=== PATIENT | male | born 1930 | race Caucasian/White ===

== ENCOUNTER 2018-07-06 10:08 | Inpatient (IN) | payer OTHER ==
--- NOTE | 2018-07-06 10:12 | EDPHY ---
HPI/HX/ROS/PE/MDM Narrative: CHIEF COMPLAINT: Fall, neurologic deficits HPI: This patient is an anticoagulated (Coumadin, aspirin) 87-year-old male arriving via EMS for evaluation of left-sided neurologic deficits. The patient fell yesterday around 12pm while picking tomatoes and struck his head, sustaining significant ecchymosis around his right eye. Last night, he developed left upper extremity weakness. This morning, he had worsening left-sided weakness, left facial droop, and slurred speech, and his called 911. Currently, he is unable to lift his left arm and states it is difficult to think. He endorses headache. He denies fever, chest pain, shortness of breath. No other recent trauma. REVIEW OF SYSTEMS: A comprehensive 10 system review of systems is otherwise negative aside from elements mentioned in the history of present illness and medical decision making. PMH: Mitral valve replacement. CHF. SOCIAL HISTORY: . Lives in [place]. Retired. PHYSICAL EXAM: General:Patient is alert. He has slurred speech. Head: Extensive ecchymosis surrounding right orbital area. ENT: Mild left facial droop. Eyes are normal to inspection. Neck: Normal inspection. Full range of motion. Respiratory:No respiratory distress. Breath sounds normal bilaterally. Cardiovascular: Regular rate and rhythm. Strong peripheral pulses. Normal cap refill. Abdomen:The abdomen is nontender to palpation. There are no peritoneal signs. There are normal bowel sounds. Back: Normal to inspection. No tenderness to palpation. Skin: Normal color. No rash. Warm and dry. Extremities: Normal appearance. Full range of motion. Neuro: Alert and oriented. Left arm weakness. Slurred speech. ED Course: 10:07 Met EMS at bedside. Will place patient in cervical collar due to history and exam findings. 87 y/o male arriving via EMS with neurologic deficits following a fall and head injury yesterday afternoon. On exam he has extensive right periorbital ecchymosis, left arm weakness, mild left facial droop, and slurred speech. 10:10 Called limited plus trauma activation due to history, age, anticoagulation status. Patient will have stat CT head. EKG was ordered and interpreted by myself. Please see [employer] system for official reading. 10:[address] Evidence of large subdural hematoma. Plan to administer Kcentra for anticoagulation reversal. 10:39 Plan to administer TXA, vitamin K. 10:30 Dr. Dorado, trauma surgeon, at bedside. He has assessed the patient. Reviewed CT. He accepts admission for subdural hematoma. Neurosurgery to consult. 10:[address] Christie, radiologist. CT shows large right-sided subdural hematoma about 8mm in depth with with 9mm of midline shift. No evidence of facial fracture. Spoke with GARFIELD Lopez for neurosurgery. Given patient's profound weakness and worsening neurologic deficits, he will likely go to the OR as well as be given PCC for reversal of his INR, as above. Plan to admit to ICU for post -operative care. 11:20 Dr. Shields, neurosurgeon at bedside. Patient will go to the OR urgently as above. Refer to neuro consult for details. 11:55 Patient has become unresponsive and will be transferred emergently to the OR. I spent a total of 109 minutes of critical care time in obtaining history, performing a physical exam, bedside monitoring of interventions, collecting and interpreting tests and discussion with consultants but not including time spent performing procedures. - Data Points Imaging Results: Imaging Impressions Cervical Spine CT 07/06/18 10:13 Impression: Degenerative cervical spine disease. No evidence for acute cervical spine injury. Findings and recommendations discussed with Kar Delgado MD at 10:35 hours , 07/06/2018. Final report concurs with initial preliminary interpretation. Head CT 07/06/18 10:13 Impression: 1. Right-sided subdural hematoma of varying size. On average, it is 8 mm in depth, causing 8 to 9 mm right to left midline shift. There is a focal area where there is more pooling of the subdural blood up to 2 cm in depth. 2. Complete effacement of the right hemispheric sulcal space due to mass effect. 3. No evidence for subarachnoid, epidural, or intraparenchymal bleed. No intraventricular bleed at this time. 4. No evidence for transtentorial herniation. 5. Right facial ecchymosis without fracture. Findings and recommendations discussed with Kar Delgado MD at 10:35 hours , 07/06/2018. Final report concurs with initial preliminary interpretation. Imaging: Discussed imaging studies w/ seasonal sales associate Radiologist, I viewed and interpreted images myself Laboratory Results: Laboratory Results 07/06/18 10:10 07/06/18 10:10 07/06/18 07/06/18 07/06/18 10:15 10:10 10:10 WBC RBC Hgb POC Hgb 11.2 gm/dL L gm/dL (13.7-17.5) Hct POC Hct 33 % L % (40-51) MCV MCH MCHC RDW Plt Count MPV Neut % (Auto) Lymph % (Auto) [place] % (Auto) Eos % (Auto) Baso % (Auto) Nucleat RBC Rel Count Absolute Neuts (auto) Absolute Lymphs (auto) Absolute Monos (auto) Absolute Eos (auto) Absolute Basos (auto) Absolute Nucleated RBC Immature Gran % Immature Gran # PT 33.3 SEC H SEC (12.0-15.0) INR 3.30 H (0.83-1.16) APTT 37.1 SEC SEC (23.0-38.0) POC Sodium 137 mEq/L mEq/L (135-145) Sodium 136 mEq/L mEq/L (135-145) POC Potassium 3.3 mEq/L mEq/L (3.3-5.0) Potassium 3.7 mEq/L mEq/L (3.3-5.0) POC Chloride 96 mEq/L L mEq/L (97-110) Chloride 96 mEq/L L mEq/L (97-110) Carbon Dioxide 30 mEq/l mEq/l (22-31) Anion Gap 10 mEq/L mEq/L (8-16) POC BUN 19 mg/dL mg/dL (7-23) BUN 22 mg/dL mg/dL (7-23) Creatinine 1.0 mg/dL mg/dL (0.7-1.3) POC Creatinine 1.0 mg/dL mg/dL (0.7-1.3) Estimated GFR > 60 Glucose 115 mg/dL H mg/dL (70-100) POC Glucose 119 mg/dL H mg/dL (70-100) Calcium 9.0 mg/dL mg/dL (8.5-10.4) 07/06/18 10:10 WBC 7.78 10^3/uL 10^3/uL (3.80-9.50) RBC 3.18 10^6/uL L 10^6/uL (4.40-6.38) Hgb 10.5 g/dL L g/dL (13.7-17.5) POC Hgb Hct 31.4 % L % (40.0-51.0) POC Hct MCV 98.7 fL fL (81.5-99.8) MCH 33.0 pg pg (27.9-34.1) MCHC 33.4 g/dL g/dL (32.4-36.7) RDW 14.3 % % (11.5-15.2) Plt Count 141 10^3/uL L 10^3/uL (150-400) MPV 11.4 fL fL (8.7-11.7) Neut % (Auto) 77.1 % H % (39.3-74.2) Lymph % (Auto) 10.8 % L % (15.0-45.0) [place] % (Auto) 11.6 % % (4.5-13.0) Eos % (Auto) 0.1 % L % (0.6-7.6) Baso % (Auto) 0.1 % L % (0.3-1.7) Nucleat RBC Rel Count 0.0 % % (0.0-0.2) Absolute Neuts (auto) 6.00 10^3/uL 10^3/uL (1.70-6.50) Absolute Lymphs (auto) 0.84 10^3/uL L 10^3/uL (1.00-3.00) Absolute Monos (auto) 0.90 10^3/uL H 10^3/uL (0.30-0.80) Absolute Eos (auto) 0.01 10^3/uL L 10^3/uL (0.03-0.40) Absolute Basos (auto) 0.01 10^3/uL L 10^3/uL (0.02-0.10) Absolute Nucleated RBC 0.00 10^3/uL 10^3/uL (0-0.01) Immature Gran % 0.3 % % (0.0-1.1) Immature Gran # 0.02 10^3/uL 10^3/uL (0.00-0.10) PT INR APTT POC Sodium Sodium POC Potassium Potassium POC Chloride Chloride Carbon Dioxide Anion Gap POC BUN BUN Creatinine POC Creatinine Estimated GFR Glucose POC Glucose Calcium Medications Given: Discontinued Medications Bacitracin (Bacitracin Ointment Tube) Confirm Administered Dose 14.2 andrew TP .STK -MED ONE Stop: 07/06/18 11:27 Last Admin: 07/06/18 13:34 Dose: 1 tube Bupivacaine HCl (Sensorcaine 0.25% Sdv) Confirm Administered Dose 30 ml .ROUTE .STK-MED ONE Stop: 07/06/18 11:27 Last Admin: 07/06/18 13:31 Dose: 10 ml Cefazolin Sodium (Ancef) Confirm Administered Dose 1 gm .ROUTE .STK-MED ONE Stop: 07/06/18 12:30 Last Admin: 07/06/18 12:29 Dose: 1 gm Cefazolin Sodium (Ancef) Confirm Administered Dose 1 gm .ROUTE .[facility]-MED ONE Stop: 07/06/18 12:30 Last Admin: 07/06/18 12:29 Dose: 1 gm Chlorhexidine Gluconate (Hibiclens) Confirm Administered Dose 1 btl TP .ST-MED ONE Stop: 07/06/18 11:39 Last Admin: 07/06/18 13:33 Dose: 1 btl Epinephrine HCl (Epinephrine) Confirm Administered Dose 1 mg .ROUTE .ST-MED ONE Stop: 07/06/18 11:30 Last Admin: 07/06/18 13:33 Dose: 0.15 mg Fibrinogen/Thrombin (Surgiflo Matrix Kit With Thrombin) Confirm Administered Dose 16 ml TP .STK-MED ONE Stop: 07/06/18 12:09 Last Admin: 07/06/18 13:37 Dose: 8 ml Gentamicin Sulfate (Garamycin) Confirm Administered Dose 160 mg .ROUTE .ST-MED ONE Stop: 07/06/18 11:28 Last Admin: 07/06/18 13:34 Dose: 160 mg Hydrogen Peroxide (Hydrogen Peroxide) Confirm Administered Dose 23.6 andrew TP .STK -MED ONE Stop: 07/06/18 11:29 Last Admin: 07/06/18 13:34 Dose: Not Given Prothrombin Complex Concent (Human) (Kcentra) 2,500 unit in 100 mls @ 0 mls/hr IV ONCE ONE; Per Protocol PRN Reason: Protocol Stop: 07/06/18 10:26 Last Admin: 07/06/18 11:29 Dose: 100 mls Phytonadione 10 mg/ Sodium (Chloride) 51 mls @ 102 mls/hr IV ONCE ONE Stop: 07/06/18 10:54 Last Admin: 07/06/18 11:10 Dose: 51 mls Tranexamic Acid 1,000 mg/ (Sodium Chloride) 110 mls @ 660 mls/hr IV ONCE ONE Stop: 07/06/18 10:48 Last Admin: 07/06/18 10:43 Dose: 110 mls Mannitol (Mannitol 20% (Premix)) Confirm Administered Dose 100 gm IV .STK-MED ONE Stop: 07/06/18 11:29 Last Admin: 07/06/18 13:35 Dose: 100 gm Microfibrillar Collagen Hemostat (Avitene Powder) Confirm Administered Dose 1 gm TP .STK-MED ONE Stop: 07/06/18 11:27 Last Admin: 07/06/18 12:30 Dose: 1 gm Microfibrillar Collagen Hemostat (Avitene Powder) Confirm Administered Dose 1 gm TP .STK-MED ONE Stop: 07/06/18 12:10 Last Admin: 07/06/18 13:36 Dose: Not Given Ondansetron HCl (Zofran) 4 mg IVP EDNOW ONE Stop: 07/06/18 10:58 Last Admin: 07/06/18 10:59 Dose: 4 mg Povidone Iodine (Betadine) Confirm Administered Dose 30 andrew TP .STK-MED ONE Stop: 07/06/18 11:30 Last Admin: 07/06/18 13:36 Dose: 1 tube Thrombin (Thrombin-Jmi) Confirm Administered Dose 5,000 unit TP .STK-MED ONE Stop: 07/06/18 11:27 Last Admin: 07/06/18 13:37 Dose: 5,000 unit Point of Care Test Results: Chemistry 07/06/18 10:15 POC Sodium 137 mEq/L mEq/L (135-145) POC Potassium 3.3 mEq/L mEq/L (3.3-5.0) POC Chloride 96 mEq/L L mEq/L (97-110) POC BUN 19 mg/dL mg/dL (7-23) POC Creatinine 1.0 mg/dL mg/dL (0.7-1.3) POC Glucose 119 mg/dL H mg/dL (70-100) ISTAT H&H 07/06/18 10:15 POC Hgb 11.2 gm/dL L gm/dL (13.7-17.5) POC Hct 33 % L % (40-51) General Time Seen by Provider: 07/06/18 10:08 Initial Vital Signs: Initial Vital Signs Temperature (C) 36.4 C 07/06/18 10:10 Heart Rate 63 07/06/18 10:10 Respiratory Rate 18 07/06/18 10:10 Blood Pressure 144/69 H 07/06/18 10:10 O2 Sat (%) 96 07/06/18 10:10 O2 Delivery Mode Room Air Allergies/Adverse Reactions: amoxicillin Allergy (Verified 07/06/18 11:29) Diarrhea hydrochlorothiazide Allergy (Verified 07/06/18 11:29) lisinopril Allergy (Verified 07/06/18 11:29) Cough simvastatin [From Zocor] Allergy (Verified 07/06/18 11:29) Myalgia tramadol Allergy (Verified 07/06/18 11:29) Rash Home Medications: Medication Instructions Recorded Acetaminophen [Tylenol ES 500 mg 1,000 mg PO Q6HRS PRN 07/06/18 (*)] Ascorbic Acid [Vitamin C 500 mg 500 mg PO DAILY@12 07/06/18 (*)] Aspirin [Aspirin 81mg (*)] 81 mg PO DAILY 07/06/18 Atorvastatin Calcium [Lipitor 20 20 mg PO HS 07/06/18 mg (*)] Bumetanide [Bumex (*)] 2 mg PO TID@,12,15 07/06/18 Ferrous Sulfate [Ferrous Sulf 325 325 mg PO DAILY 07/06/18 MG (*)] Herbals/Supplements -Info Only 1 ea PO DAILY 07/06/18 Latanoprost 0.005% [Xalatan 0.005% 1 drops EACHEYE HS 07/06/18 (*)] Spironolactone [Aldactone 25 MG 12.5 mg PO BID 07/06/18 (*)] Tamsulosin HCl [Flomax 0.4 MG (*)] 0.4 mg PO DAILY 07/06/18 Warfarin Sodium [Coumadin 5MG (*)] 5 mg PO HS 07/06/18 Departure - Departure Disposition: To OP Cath/Surgery Clinical Impression: Subdural hematoma Condition: Critical Report Scribed for: Kar Delgado Report Scribed by: Diana Willingham Date of Report: 07/06/18 Time of Report: 12:16 Physician Review and Approval Statement: Portions of this note were transcribed by an ED scribe. I personally performed the history, physical exam, and medical decision making; and confirm the accuracy of the information in the transcribed note.
[2018-07-06] MEDS ORDERED: PHYTONADIONE 10 MG in NS 50 ML IV ONE (10:25)
[2018-07-06] MEDS ORDERED: HUMAN PROTHROMBIN COMPLX(PCC) 2,500 UNIT/100 ML VIAL IV ONE (10:25)
[2018-07-06 10:28] LABS: PLATELET COUNT 141 10^3/uL (150-400)
[2018-07-06 10:33] LABS: INR 3.3 (0.83-1.16); PROTIME(PATIENT) 33.3 SEC (12.0-15.0)
[2018-07-06] MEDS ORDERED: TRANEXAMIC ACID 1,000 MG in NS 100 ML IV ONE (10:39)
[2018-07-06] MEDS ORDERED: ONDANSETRON 4 MG/2 ML VIAL IVP ONE (10:57)
[2018-07-06] MEDS ORDERED: ONDANSETRON 4 MG/2 ML VIAL ONE ×2 (10:58→11:55)
[2018-07-06] MEDS ORDERED: THROMBIN (BOVINE) 5,000 UNIT VIAL TP ONE (11:26)
[2018-07-06] MEDS ORDERED: BUPIVACAINE 0.25% 30 ML SDV ONE (11:26)
[2018-07-06] MEDS ORDERED: BACITRACIN ZINC 14.2 GM OINTTUBE TP ONE ×2 (11:26→13:39)
[2018-07-06] MEDS ORDERED: AVITENE POWDER 1 GM JAR TP ONE ×2 (11:26→12:09)
[2018-07-06] MEDS ORDERED: GENTAMICIN SULFATE 80 MG/2 ML VIAL ONE (11:27)
[2018-07-06] MEDS ORDERED: HYDROGEN PEROXIDE 236 ML BOTTLE TP ONE (11:28)
[2018-07-06] MEDS ORDERED: MANNITOL 20% 100 GM/500 ML BAG IV ONE ×2 (11:28→11:57)
[2018-07-06] MEDS ORDERED: POVIDONE-IODINE 30 GM OINTTUBE TP ONE (11:29)
[2018-07-06] MEDS ORDERED: EPINEPHrine 1 MG/ML INJ ONE (11:29)
--- NOTE | 2018-07-06 11:35 | PDANEPAE ---
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 - Pulmonary History Hx Oxygen in Use at Home: Yes O2 in Use at Home (L/minute): 2 - Endocrine History Hx Diabetes: No ANE Review of Systems Review of Systems: - Exercise capacity Exercise capacity: unable to assess ANE Patient History - Allergies Allergies/Adverse Reactions: amoxicillin Allergy (Verified 07/06/18 11:29) Diarrhea hydrochlorothiazide Allergy (Verified 07/06/18 11:29) lisinopril Allergy (Verified 07/06/18 11:29) Cough simvastatin [From Zocor] Allergy (Verified 07/06/18 11:29) Myalgia tramadol Allergy (Verified 07/06/18 11:29) Rash - Home Medications Home medications: home medication list seen and reviewed Home Medications: Acetaminophen [Tylenol ES 500 mg (*)] 1,000 mg PO Q6HRS PRN 07/06/18 [Last Taken 07/06/18] Ascorbic Acid [Vitamin C 500 mg (*)] 500 mg PO DAILY@12 07/06/18 [Last Taken 10/10] Aspirin [Aspirin 81mg (*)] 81 mg PO DAILY 07/06/18 [Last Taken 07/05/18] Atorvastatin Calcium [Lipitor 20 mg (*)] 20 mg PO HS 07/06/18 [Last Taken ] Bumetanide [Bumex (*)] 2 mg PO TID@,,07/06/18 [Last Taken 07/05/18 15:00] Ferrous Sulfate [Ferrous Sulf 325 MG (*)] 325 mg PO DAILY 07/06/18 [Last Taken 07/05/18] Herbals/Supplements -Info Only 1 ea PO DAILY 07/06/18 [Last Taken Unknown] Latanoprost 0.005% [Xalatan 0.005% (*)] 1 drops EACHEYE HS 07/06/18 [Last Taken 07/05/18] Spironolactone [Aldactone 25 MG (*)] 12.5 mg PO BID 07/06/18 [Last Taken 21:00] Tamsulosin HCl [Flomax 0.4 MG (*)] 0.4 mg PO DAILY 09/13/18 [Last Taken Unknown] Warfarin Sodium [Coumadin 5MG (*)] 5 mg PO HS 07/06/18 [Last Taken 07/05/18] - Smoking Hx Smoking Status: Never smoked ANE Labs/Vital Signs - Labs Result Diagrams: 07/06/18 10:10 07/06/18 10:10 - Vital Signs Vital Signs: reviewed preoperatively; see RN documention for details Blood Pressure: 133/79 Heart Rate: 60 Respiratory Rate: 18 O2 Sat (%): 93 Height: 170.18 cm Weight: 68.039 kg ANE Physical Exam - Airway Neck exam: C-collar in place Mouth exam: poor dentition - Pulmonary Pulmonary: no respiratory distress - Cardiovascular Cardiovascular: regular rate and rhythym - ASA Status ASA Status: IV, E ANE Anesthesia Plan Anesthesia Plan: general endotracheal anesthesia (RSI) Lines/Monitors: arterial line Urgent/Emergent Case: Manuel tavera completed preop but documented later for safe timely pt care
[2018-07-06] MEDS ORDERED: CHLORHEXIDINE GLUC HIBICLENS 118 ML BTL TP ONE (11:38)
[2018-07-06] MEDS ORDERED: fentaNYL 100 MCG/2 ML INJ ONE (11:55)
[2018-07-06] MEDS ORDERED: LIDOCAINE 2% 100 MG/5 ML SYR ONE (11:55)
[2018-07-06] MEDS ORDERED: DEXAMETHASONE 4 MG/ML VIAL ONE (11:55)
[2018-07-06] MEDS ORDERED: PROPOFOL 200 MG/20 ML VIAL ONE ×2 (11:58→13:14)
[2018-07-06] MEDS ORDERED: SURGIFLO MATRIX KIT WITH THROMBIN 8 ML TP ONE (12:08)
[2018-07-06] MEDS ORDERED: ceFAZolin 1 GM VIAL ONE ×2 (12:29)
[2018-07-06] MEDS ORDERED: ROCURONIUM 50 MG/5 ML VIAL ONE ×2 (12:29→13:14)
[2018-07-06] MEDS ORDERED: PHENYLEPHRINE HCL 100 MCG/ML SYR ONE (12:45)
[2018-07-06] MEDS ORDERED: LABETALOL HCL 5 MG/ML 20 ML MDV IVP PRN (12:51)
[2018-07-06] MEDS ORDERED: fentaNYL 100 MCG/2 ML INJ IVP PRN (12:51)
[2018-07-06] MEDS ORDERED: MEPERIDINE 25 MG/0.5 ML AMP IVP PRN (12:51)
[2018-07-06] MEDS ORDERED: DEXAMETHASONE 4 MG/ML VIAL IVP PRN (12:51)
[2018-07-06] MEDS ORDERED: NALOXONE HCL 0.4 MG/ML INJ IVP PRN (12:51)
[2018-07-06] MEDS ORDERED: ONDANSETRON 4 MG/2 ML VIAL IVP PRN ×2 (12:51→14:04)
--- NOTE | 2018-07-06 12:53 | POSTANESTH ---
Post Anesthetic Evaluation Cardiovascular Status: Normal, Stable Respiratory Status: Other, See Comment (intubated, CMV) Level of Consciousness/Mental Status: Unconscious Pain Control: Adequate, Prn Tx Ordered Nausea/Vomiting Control: Adequate, Prn Tx Ordered Complications Possibly Related to Anesthesia: None Noted
--- NOTE | 2018-07-06 13:03 | SOAPPROG ---
SOAP Progress Note Assessment/Plan: Assessment: 87-YEAR-OLD MALE WITH FALL YESTERDAY RESULTING IN LARGE RIGHT SUBDURAL HEMATOMA WITH A LEFT SHIFT AND LEFT JOSE ANTONIO PARESIS PATIENT IS RESPONSIVE AND ORIENTED AND ALERT WHEN AROUSED BUT STUPOROUS/LARGE ECCHYMOSIS OVER THE RIGHT TEMPORAL AREA/PERRLA CHEST CLEAR COR REGULAR RHYTHM ABDOMEN SOFT EXTREMITIES FULL RANGE OF MOTION FULL PULSES PATIENT IS ON COUMADIN WITH AN INR GREATER THAN 3 FOR A HEART VALVE Plan: NEUROSURGERY EVALUATION FOR PROBABLE INTERVENTION 07/06/18 13:00 Objective: Vital Signs Temp Pulse Resp BP Pulse Ox 36.4 C 60 18 133/79 H 93 07/06/18 10:10 07/06/18 12:50 07/06/18 12:50 07/06/18 12:50 07/06/18 12:50 PT 33.3 SEC (12.0-15.0) H 07/06/18 10:10 INR 3.30 (0.83-1.16) H 07/06/18 10:10 ICD10 Worksheet Patient Problems: Problems Problem Status Onset Subdural hematoma Acute
--- NOTE | 2018-07-06 13:22 | GHP ---
DATE OF ADMISSION: 07/06/2018 HISTORY OF PRESENT ILLNESS: An 87-year-old male who fell at home yesterday and has become progressiv harlan more lethargic with some weakness of his left side, was brought to the ER today. A CT scan revea ls a large subdural hematoma. He has definite left hemiparesis, although he is alert and talking. H allan has a [address] shift [address] scan. Chest x-ray and neck CT are negative. He is admitted at this [place] [facility] and will need neurosurgery intervention. He is on Coumadin for heart disease having had a heart va lve replacement and that is being reversed in the emergency room. PAST MEDICAL HISTORY: Includes open heart surgery with valve replacement for which he is on Coumadin . No other real history is obtainable at this point. REVIEW OF SYSTEMS: Negative on full 10-point review but is somewhat unreliable. SOCIAL HISTORY: Does not smoke. PHYSICAL EXAMINATION: GENERAL: An alert, somewhat stuporous, 87-year-old male who responds appropri ately. HEAD AND NECK: Reveals a right-sided ecchymosis with a small cephalohematoma. Pupils are eq ual and reactive. Occlusion is normal. His TMs are clear. No bruits. NECK: Nontender. He is in a cervical collar. CHEST: Reveals midline median sternotomy scar. Breath sounds are equal. He is nontender in his ribs or clavicles. COR: Reveals a regular rhythm without murmurs. ABDOMEN: Soft and nontender without masses or hernias. GENITALIA: Normal. EXTREMITIES: Benign with full range of motion, full pulses. NEUROLOGIC: Reveals cranial nerves intact. He has definite weakness of his l eft arm and left leg being only 3+ out of 5. His right side extremities move appropriately. PSYCH: Reveals him to be stuporous, cooperative, not really oriented. IMPRESSION: Traumatic right subdural hematoma with midline shift and left paresis. PLAN: Neurosurgery evaluation. Risks and options have been fully discussed. He will most likely ne ed to go to surgery after reversal of his anticoagulation. /[id number]/MODL
--- NOTE | 2018-07-06 13:32 | GCON ---
DATE OF CONSULTATION: 07/06/2018 TIME SEEN: Time the patient was seen in the ER is at 10:30 a.m. REASON FOR CONSULTATION: Right-sided subdural hematoma, status post fall. HOSPITAL COURSE, HISTORY, AND MAJOR MEDICAL FINDINGS: The patient is an 87-year-old gentleman who is on Coumadin for his heart valve and was out picking tomatoes yesterday and fell. He did hit his hea d on the right-hand side. After the event, he was feeling a little bit weak, and then when his went to wake him up this morning, he was unable to move his left arm or left leg very well. She brou ght him to [facility] Emergency Room for further evaluation. Upon examining the patient, he s tates he has a headache. He is dizzy and has some nausea. Denies any loss of bowel or bladder contr ol. Denies any right arm or leg numbness, tingling, pain, or weakness. PAST MEDICAL HISTORY: Significant for history of a valve, for which he is on Coumadin. PAST SURGICAL HISTORY: Significant for valve replacement. HOME MEDICATIONS: Home medications include Tylenol, ascorbic acid, aspirin, Lipitor, Bumex, ferrous sulfate, ferrous sulfate, multivitamin, latanoprost drops, spironolactone, tamsulosin, and Coumadin. SOCIAL HISTORY: The patient is with his at bedside. FAMILY HISTORY: Noncontributory. ALLERGIES: Amoxicillin, hydrochlorothiazide, lisinopril, simvastatin, and tramadol. PHYSICAL EXAM: VITALS: BP is 133/78, heart rate is 60, respiratory rate is 18, and he is 93% on christopher m air. Temp is 36.4. GENERAL: The patient is in no acute distress. He is alert and oriented, thou gh he is complaining of a bad headache. HEENT: He does have some right eye ecchymosis and swelling. Pupils, PERRLA. NEUROLOGIC: The patient is a 5/5 in his right upper and right lower extremity, in cluding his deltoids, triceps, biceps, wrist flexors, extensors, interossei, intrinsic butter wrapper, iliopsoa s, hamstrings, quadriceps, plantar flexion, dorsiflexion, EHL. The patient's left upper and left low er extremity, he is a 1/5 diffusely in his deltoids, triceps, biceps, wrist flexors, extensors, inter ossei, intrinsic butter wrapper, iliopsoas, hamstrings, quadriceps, plantar flexion, dorsiflexion, and EHL. DIAGNOSTIC REVIEW: Patient underwent a head CT upon coming into the emergency room, which demonstrat ed a right-sided subdural hematoma about 8 mm in depth, with 8-9 mm of midline shift. There is compl ete effacement of the right hemispheric sulci due to mass effect. There was no evidence of facial fr acture, but there is a right eye ecchymosis. The patient also underwent a cervical spine CT, which demonstrated multilevel degenerative disk disea se without any evidence of acute spinal fracture. ASSESSMENT AND PLAN: The patient is an 87-year-old gentleman who sustained a ground level fall yeste rday and who has profound left-sided arm and leg weakness. He is also on Coumadin for his heart valv e, and his INR is 3.3. It was discussed with Trauma Surgery, as well as the ER, that given the patie nt's profound weakness, that he should be taken to the ER emergently. He will be given PCC for rever shonda of his INR. The risks, benefits and alternatives to proceeding with the procedure were thoroughl y discussed with the patient and his , who was at the bedside today. He will be taken to the OR and be admitted to the ICU afterwards for close observation. The patient was seen by Dr. Shields and myself. /[id number]/MODL
[2018-07-06] MEDS ORDERED: LACTULOSE 20 GM/30 ML UDCUP PO PRN (14:04)
[2018-07-06] MEDS ORDERED: POLYETHYLENE GLYCOL 3350 17 GM PKT PO PRN (14:04)
[2018-07-06] MEDS ORDERED: MAGNESIUM HYDROXIDE 30 ML UDCUP PO PRN (14:04)
[2018-07-06] MEDS ORDERED: BISACODYL 10 MG SUPP PR PRN (14:04)
--- NOTE | 2018-07-06 14:24 | CPEKG ---
Test Reason : OPEN Blood Pressure : / mmHG Vent. Rate : 078 BPM Atrial Rate : 000 BPM P-R Int : 046 ms QRS Dur : 162 ms QT Int : 464 ms P-R-T Axes : 000 085 095 degrees QTc Int : 529 ms Atrial flutter Ventricular premature complex Right bundle branch block Repol abnrm suggests ischemia, diffuse leads Confirmed by Kar Delgado ([id number]) on 07/06/2018 2:23:38 PM Referred By: Confirmed By:Kar Delgado
--- NOTE | 2018-07-06 14:25 | POSTOPPROG ---
Post Op Note Date of Operation: 07/06/18 Surgeon: Kelly Shields Beauty Director: Jovon Plunkett Anesthesia: GET(General Endotracheal) Pre-op Diagnosis: SDH Post-op Diagnosis: SDH Indication: AMS Procedure: right sided hemicraniotomy Findings: large holohemispheric SDH Inf/Abcess present in the surg proc area at time of surgery?: No Depth: Organ Space EBL: 50-100 Drains: Gonzalez Marrufo
--- NOTE | 2018-07-06 14:28 | NEUSURGPN ---
Date of Surgery: 07/06/18 Post Op Day: 0 Assessment/Plan: 87M on AC with large holohemispheric R SDH, s/p R hemicrani for evacuation SBP<140 Keppra q2h neuro checks SD Vaca open low to floor JPx1 to suction (subgaleal) CTH in AM, sooner if declines seen and dw Dr. Shields Subjective: intubated, post anesthesia and on propofol Objective: intubated sedated PEARLA, sluggish no response to painful stimuli JPx1 with bloody drainage Vaca to floor. Urinary Catheter in Place: Yes Urinary Catheter Indication: Accurate I & O Required - Physician Discussed Patient with Dr.: Shields Patient Seen by : Alyson Neurosurgery Physical Exam - Vitals, I&O, Labs I and O 07/05/18 07/06/18 07/07/18 05:59 05:59 05:59 Weight 68.039 kg Vital Signs Temp Pulse Resp BP Pulse Ox 36.1 C 85 9 L 163/79 H 100 07/06/18 14:00 07/06/18 14:00 07/06/18 14:00 07/06/18 14:00 07/06/18 14:00 ICD10 Worksheet Patient Problems: Problems Problem Status Onset Subdural hematoma Acute
[2018-07-06] MEDS: niCARdipine/NACL 200 ML IV PRN (14:29)
[2018-07-06] MEDS: NS W/ 20 KCl/L 1,000 ML IV SCH (14:33)
--- NOTE | 2018-07-06 14:37 | GOP ---
DATE OF ADMISSION: 07/06/2018 PREOPERATIVE DIAGNOSIS: 1. Acute subdural hematoma, right-sided. 2. Herniation. POSTOPERATIVE DIAGNOSIS: 1. Acute subdural hematoma, right-sided. 2. Herniation. PROCEDURE: Right craniotomy, evacuation of acute subdural hematoma. SURGEON: Kelly Shields DO. HOME AGENT: ILAN Tapia. EBL: 250 mL. FLUIDS: 1 L crystalloid. URINE OUTPUT: Not recorded. DRAINS: One DAMIÁN in the subgaleal space to bulb suction. One ventricular type drain in the subdural s pace to a Vaca bag. SPECIMENS: None. COMPLICATIONS: None. INDICATIONS: This is an 87-year-old male on Coumadin who fell while picking tomatoes. He was acutel y weak on the left side when he came in with a large subdural hematoma. He had a decline in the [facility] department. Was given PCC acutely and brought to the operating room for an emergent craniotomy . He was identified. His consented for him. Hair was clipped with the OR clippers. Right michelle e was identified. Head was placed in a Moses head porter to 80 pounds of pressure with a slight t urn to his head and a bump under his shoulder. All pressure points were appropriately padded. His i ncision site was marked for a large? shaped craniotomy. He was prepped and draped in the usual steri le fashion. Incision was anesthetized with 0.5% Marcaine with epinephrine. Patient had been loaded with PCC, Keppra and mannitol. Incision was made with a 10 blade. Hemostasis was obtained with bipo lar cautery. The periosteal elevator was used to elevate the periosteum and the Bovie was used to di ssect through the temporalis muscle, reflecting it for placing a scalp flap anterior to the _. Retracted the scalp flap with the fish hooks to the Aparna bar. 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 In the frontal region in the keyhole in the infratemporal fossa and posteriorly performed these 14 mm bu rr holes and then connected these with a B1 with footplate. The dura was densely adherent to the fla p. We were able to remove the flap and reflect the dura posteriorly. We then evacuated an exceeding ly large acute subdural hematoma covering the entire right hemisphere. There was a large sort of abdirashid ticular-shaped region that was compressive in the brain leaving a compression in the brain. That was right near the vein of Trolard which was the actively bleeding vessel. We were able to use Gel-Foam and Avitene to get this vessel to stop without taking the vessel or infarcting it. We then copiousl y irrigated with gentamicin infused saline, trocared a ventricular type drain out posteriorly, placin g in the subdural space. We approximated with scaffolding the dura with 4-0 Nurolon but as it had be en densely adherent it was torn in several places. We then placed DuraGen over this space and then r eplaced the bone flap with Synthes plates and 4 mm screws. We then copiously irrigated with gentamic in infused saline trocared a subgaleal drain out more anteriorly, closed the temporalis fascia with 2 -0 Vicryl pop-offs. Closed the subgaleal space with 0 Vicryl pop-offs. The skin was closed with sta ples. The drains were sutured with 2-0 Vicryl pop-offs. The patient dressed with bacitracin and Tel fa stapled down. Patient was stable throughout the surgery, tolerated procedure well. Will remain i ntubated in the ICU, and will re-examine him. The brain did not pop up to the surface, that should al so be noted. /[id number]/MODL
[2018-07-06] MEDS: fentaNYL/NACL 100 ML IV SCH (14:38)
[2018-07-06] MEDS: PROPOFOL/EMULSION 100 ML IV SCH (14:38)
--- NOTE | 2018-07-06 14:55 | PDMN ---
Medical Necessity Medical necessity: Pt meets inpt criteria per MD order and [facility] [id number] Craniotomy for Traumatic Brain Injury or Intracerebral Hemorrhage, Medicare inpt only surgery, 5 days. 87 y/o who fell at home admitted w/large traumatic subdural hematoma w/midline shift revealed by CT, L paresis present, progressive lethargy, nausea, dizziness, and headache. Neurosurg consult, pt to OR for R hemicraniotomy for evac of R SDH, ICU monitoring, anticipate >2MN for ongoing monitoring/treatment.
--- NOTE | 2018-07-06 16:08 | GHP ---
DATE OF ADMISSION: 07/06/2018 REFERRING PHYSICIAN: Barrington Dorado MD REASON FOR REFERRAL: Evaluation and management of hypertension and respiratory failure. HISTORY: The patient is an 87-year-old gentleman who is on Coumadin apparently for a heart valve rep lacement who was picking tomatoes yesterday and fell. He hit his head on the right side. He was fee ling a little bit weak yesterday and then when his went to wake him up this morning, he was unab le to move his left arm or left leg. He was brought to [facility] where the patient had a headache, some dizziness and nausea, as well as a left-sided weakness. A CT scan of the head s howed an 8 mm right-sided subdural hematoma with an 8-9 mm midline shift. In the emergency departmen t, his status deteriorated and his pupil began to dilate, so he was taken emergently to the operating room where a craniotomy was performed and a large right subdural hematoma was evacuated. He receive d PCC prior to surgery. He was kept intubated after surgery. PAST MEDICAL HISTORY: Heart valve replacement. MEDICATIONS: At the time of admission include aspirin, Lipitor, Bumex, iron sulfate, spironolactone, tamsulosin, and Coumadin. ALLERGIES: Amoxicillin, hydrochlorothiazide, lisinopril, simvastatin and tramadol. FAMILY HISTORY: Noncontributory. SOCIAL HISTORY: The patient is . He is a nonsmoker. REVIEW OF SYSTEMS: Unobtainable. PHYSICAL EXAMINATION: GENERAL: The patient is intubated, sedated and unresponsive. VITAL SIGNS: H is systolic blood pressure was 155 when he first came in, but is now 138/48. His heart rate is 72. He is afebrile. HEENT: The patient is status post right craniotomy and has ecchymosis around his ri ght eye. He is nonicteric. NECK: No adenopathy. Trachea is midline. CHEST: Clear to auscultatio n. CARDIAC: Irregularly irregular. ABDOMEN: Soft. Bowel sounds are present, but hypoactive. EXT REMITIES: No clubbing, cyanosis, or edema. NEURO: The patient is not spontaneously moving currentl y. He is on propofol and had received rocuronium a few hours ago. LABORATORY: Hemoglobin is 11.2. Chemistry group is unremarkable. Blood gas shows a pH of 7.49 with a pO2 of 330, a CO2 of 29, and a bicarbonate of 28 on 100% oxygen with a sedimentation rate of 9 and a patient rate of 15 with a tidal volume of 500. Chest x-ray shows some atelectasis and pulmonary venous hypertension. Images were reviewed by me. ASSESSMENT: 1. Large right subdural, status post evacuation. 2. Hypertension. The patient initially had some hypertension, but the patient has been started on a nicardipine drip and also started on a fentanyl drip, and this has normalized. 3. Atrial fibrillation. The patient currently has atrial fibrillation, which is rate controlled. I t is unclear if he has a prior history of atrial fibrillation. 4. Respiratory failure. The patient has respiratory failure related to anesthesia, but his underlyi ng mental status may also be contributing. It is possible that he will not be able to control his ai rway even after sedation/anesthesia is discontinued. RECOMMENDATIONS: 1. Continue nicardipine as p.r.n. Propofol and fentanyl will be continued for analgesia and sedatio n. The patient will be kept intubated for the time being. We will probably aim toward reducing sanjeev tion and seeing if he can be extubated tomorrow. 2. GI prophylaxis will be instituted. /[id number]/MODL
[2018-07-06] MEDS: FAMOTIDINE 20 MG/NACL 50 ML IV SCH (16:22)
[2018-07-06] MEDS ORDERED: DOPamine/DEXTROSE 400 MG/250 ML BAG IV ONE (18:10)
[2018-07-06] MEDS ORDERED: ALBUMIN 5% 500 ML BOTTLE IV ONE (18:10)
[2018-07-06] MEDS ORDERED: ALBUMIN 5% 500 ML IV PRN (18:17)
[2018-07-06] MEDS ORDERED: NOREPINEPHRINE BITARTRATE 4 MG in NS 500 ML IV SCH (18:30)
--- NOTE | 2018-07-06 19:34 | PDINTPN ---
Generation Technologist Progress Note Assessment/Plan: Assessment: Called to see patient secondary to hypotension. 87-year-old status post mechanical fall yesterday, struck his head. History of mitral valve replacement, chronic atrial fibrillation and Coumadin anticoagulation. This morning when he awoke had left-sided weakness. Was brought to the emergency department. Found to have a large right-sided subdural hematoma with herniation. He was taken to the operating room and craniotomy performed with evacuation of the subdural. Drains were left in place. He was returned to the intensive care unit on the ventilator. He was initially hypertensive, requiring Cardene, propofol and fentanyl. He subsequently became hypotensive, with MAPs in the 50s. Cardene propofol turned off. Started on low-dose dopamine. IV fluids continued. Given 5% albumin, 500 cc. MAPs better, in the low 60s. Atrial fibrillation on the monitor now with a rate of approximately 75. Saturations 100%. Lungs are clear bilaterally. He is starting to move lower extremities appropriately to stimulation and would appear to squeeze his right-hand to command. No response regarding the left upper extremity. Triple-lumen catheter placed in the right subclavian vein without problems. This is dictated separately. CVP pending. Hematocrit 24, down from 31 on admission. Plan: Continue dopamine for now. Await CVP measurements. Adjust fluids accordingly. Would use norepinephrine as a 2nd agent for hypotension if needed. Repeat H&H at 10:00 p.m.. Follow laboratory, chest x-ray, ABG in the a.m.. Continue ventilatory support and full supportive intensive care. Possible repeat CT scan tonight per neuro surgery. 40 min of critical care time spent directly with the patient, not including central line placement. Discussed issues with nursing and the patient's family. Objective: Vital Signs Temp Pulse Resp BP Pulse Ox 35.7 C L 45 L 14 104/38 L 100 07/06/18 15:01 07/06/18 18:00 07/06/18 18:00 07/06/18 18:00 07/06/18 18:00 Laboratory Results 07/06/18 18:30 07/06/18 18:30 07/05/18 07/06/18 07/07/18 05:59 05:59 05:59 Intake Total 486 Output Total 1280 Balance -794 PT 33.3 SEC (12.0-15.0) H 07/06/18 10:10 INR 3.30 (0.83-1.16) H 07/06/18 10:10 ICD10 Worksheet Patient Problems: Problems Problem Status Onset Subdural hematoma Acute
[2018-07-06] MEDS ORDERED: ALBUMIN 5% 500 ML IV ONE (19:51)
--- NOTE | 2018-07-06 20:59 | GPN ---
DATE OF PROCEDURE: 07/06/2018 PROCEDURE: Central line placement. INDICATION: Hypotension, need for pressors in a patient status post fall and craniotomy for a large subdural hematoma. DESCRIPTION OF PROCEDURE: The procedure was performed in the intensive care unit. Informed consent was obtained from the patient's family. Appropriate time-out was performed. Sterile barrier techniq ues were used throughout the procedure. Local anesthesia included approximately 5 cc of 1% lidocaine related to the right clavicle. The subc lavian vein was easily cannulated. Wire, introducer, and subsequently the triple-lumen catheter were placed without difficulty. There was no significant bleeding. There was good blood return from all 3 ports. Chest x-ray documented the line to be in good position. There was no evidence of a pneumo thorax. The lungs otherwise appeared clear. CVP was measured and was found to be 9 cm water pressure. ASSESSMENT: Successful central line placement. /[id number]/MODL
[2018-07-06] MEDS: levETIRAcetam 750 MG in NS 100 ML IV SCH (21:15)
[2018-07-06] MEDS: SENNOSIDES/DOCUSATE SODIUM TAB PO SCH (21:19)
[2018-07-07] MEDS: PROPOFOL/EMULSION 100 ML IV SCH (03:03)
[2018-07-07] MEDS: NS W/ 20 KCl/L 1,000 ML IV SCH (04:41)
[2018-07-07 06:40] LABS: PLATELET COUNT 103 10^3/uL (150-400)
[2018-07-07 06:49] LABS: INR 1.3 (0.83-1.16); PROTIME(PATIENT) 16.4 SEC (12.0-15.0)
[2018-07-07] MEDS: fentaNYL/NACL 100 ML IV SCH (07:15)
[2018-07-07] MEDS: SENNOSIDES/DOCUSATE SODIUM TAB PO SCH ×2 (08:07→21:21)
--- NOTE | 2018-07-07 08:28 | SOAPPROG ---
SOAP Progress Note Assessment/Plan: Assessment: 87 yo male who takes COumadin POD #1 sp emergent right crani for acute SDH after a fall Neuro exam grossly stable with left hemiplegia and purposeful right sided movement to stimulation New right sided ICH on CTH this AM - will follow. Dr. Shields aware Still on Dopamine 5mcg Plan: CPM on vent. Will give 100% O2, 2hr on /2 hr off x 24 hrs to help with pneumocephalus Raise SD drain to shoulder level per Dr Shields Continue subgaleal DAMIÁN OK to get MRI Cspine to clear cspine Repeat CTH in AM Tuesday reviewed CTH, patient exam, subdural drain output and plan with Dr. Shields this AM 07/07/18 08:32 Subjective: intubated, no sedation. Per RN grossly stable exam overnight will occasionally move right side, but mostly to painful stim. Ongoing left hemiplegia Objective: Vital Signs Temp Pulse Resp BP Pulse Ox 37.9 C 68 19 118/48 L 94 07/07/18 04:00 07/07/18 07:00 07/07/18 07:00 07/07/18 07:00 07/07/18 07:00 Laboratory Results 07/07/18 06:15 07/07/18 06:15 07/06/18 07/07/18 07/08/18 05:59 05:59 05:59 Intake Total 3919 Output Total 2213 157 Balance 1706 -157 PT 16.4 SEC (12.0-15.0) H 07/07/18 06:15 INR 1.30 (0.83-1.16) H 07/07/18 06:15 Neuro: eyes closed Pupils pinpoint moves right arm towards ET tube to sternal rub and flexes right leg up slight movement lleft toes to painful stim Subdural DAMIÁN: dilute blood from CSF drainage 157ml Subgaleal: no output this AM ICD10 Worksheet Patient Problems: Problems Problem Status Onset Subdural hematoma Acute
--- NOTE | 2018-07-07 09:34 | ASMTCASEMG ---
Living Arrangements What is your living Answers: With Spouse arrangement? Who do you live with? Type Of Residence What kind of residence do Answers: House you live in? Discharge Plan Comments Coordination Status Comments Notes: Patient is a 87yo male who is on Coumadin for a heart valve replacement. Patient was picking tomatoes on 07-05-18 when he fell and hit his head. He woke up on the unable to move his left arm and left leg. Patient was also experiencing dizziness and nausea, headache. In the ER, patient deteriorated and was taken emergently to the OR where a craniotomy was performed and a large right subdural hematoma was evacuated. PT ordered. D/C plan TBD. CM will follow Date Signed: 07/07/2018 09:33 AM Electronically Signed By:Casie Haq LCSW
[2018-07-07] MEDS ORDERED: PHENYLEPHRINE HCL 100 MCG/ML SYR ONE (09:37)
--- NOTE | 2018-07-07 11:05 | PDINTPN ---
[employer]ver Progress Note Assessment/Plan: Assessment: S/P fall S/P SDH with evacuation 07/06 Hypotension: Initially hypertensive, then developed hypotension that responded to IVF and DA. Now off DA AF: Rate OK Anticoagulation: For Valve replacement and AF. Now reversed. Anemia: Up after transfusion. Plan: Await MRI to determine if there is a c-spine ligamentous injury. Follow BP. Hold sedation, possibly extubate today. Follow Hgb. 07/07/18 11:07 Subjective: Intubated, sedated. Responds to some simple commands. Objective: Vital Signs Temp Pulse Resp BP Pulse Ox 37.9 C 69 13 132/52 H 100 07/07/18 04:00 07/07/18 09:00 07/07/18 09:00 07/07/18 09:00 07/07/18 09:00 Laboratory Results 07/07/18 06:15 07/07/18 06:15 07/06/18 07/07/18 07/08/18 05:59 05:59 05:59 Intake Total 3919 Output Total 2213 181 Balance 1706 -181 PT 16.4 SEC (12.0-15.0) H 07/07/18 06:15 INR 1.30 (0.83-1.16) H 07/07/18 06:15 Physical Exam - Physical Exam General Appearance: alert, no apparent distress EENT: ET tube, other (right eye eccymosis) Neck: normal inspection, other (hard c-collar) Respiratory: lungs clear, normal breath sounds Cardiac/Chest: regular rate, rhythm, No edema Abdomen: normal bowel sounds, non-tender Skin: normal color, warm/dry Extremities: normal inspection Neuro/Psych: normal mood/affect, No alert ICD10 Worksheet Patient Problems: Problems Problem Status Onset Subdural hematoma Acute
[2018-07-07] MEDS: levETIRAcetam 750 MG in NS 100 ML IV SCH ×2 (11:26→21:01)
[2018-07-07] MEDS: FAMOTIDINE 20 MG/NACL 50 ML IV SCH (11:26)
--- NOTE | 2018-07-07 12:42 | GCON ---
CARDIOLOGY CONSULTATION REFERRING PHYSICIAN: Dr. Dorado CHIEF COMPLAINT: Right subdural hematoma evacuation/significant cardiac history. HISTORY OF PRESENT ILLNESS: This is an 87-year-old male who apparently, according to his , was o ut picking tomatoes on 07/06/2018 in the morning. The patient apparently was carrying in a basket fu ll of tomatoes and using a cane in his alternate hand, when he Orestes slipped on a concrete step walki ng into the house and fell and hit the right side of his head. The patient actually was alert enough to come in to talk to his , who explained the situation, and did not mention any issues of passi ng-out/syncope/palpitations. The patient indicated to his that the fall was most likely from st umbling on the step, where his cane could not get appropriate footing. Unfortunately, the patient di d develop worsening mental status, and he was taken to the emergency room, where he was found to have a subdural hematoma on the right side which had mass effect. The patient was taken emergently by [facility] for evacuation. The patient is being seen now in the ICU setting, currently intubated. O f note, the patient's baseline ECG appears to be controlled atrial fibrillation, with no acute ST rafy nges. Blood pressure is stable on a Cardene drip. PAST MEDICAL HISTORY: According to the family, the patient does have a significant cardiac history. Unfortunately, they are unclear of what exact diagnoses he has had. They do recall him having a jessika ve surgery, as well as having an arrhythmia issue, but they are unclear if this is atrial fibrillatio n versus something else. Additionally, they are unclear if the patient had a mechanical or bioprosth etic heart valve placed, although he was on Coumadin upon admission. The patient also apparently has a history of hypertension and hyperlipidemia. HOME MEDICATIONS: They consist of: 1. Aspirin. 2. Lipitor. 3. Bumex. 4. Iron sulfate. 5. Spironolactone. 6. Coumadin. 7. Tamsulosin. ALLERGIES: 1. Amoxicillin. 2. Lisinopril. 3. Simvastatin. FAMILY HISTORY: Noncontributory. REVIEW OF SYSTEMS: Unobtainable, secondary to the patient's current clinical status. SOCIAL HISTORY: The patient is currently . He was quite active prior to this incident. PHYSICAL EXAMINATION: VITAL SIGNS: The patient is currently afebrile. Blood pressure is 140/70, wi th a heart rate of 74, saturating at 97% on the ventilator. EYES: Pupils are sluggish bilaterally. SKIN: Dry. CARDIOVASCULAR: Irregularly irregular. S1, S2. Soft 2/6 systolic murmur, heard best at the apex. LUNGS: Decreased breath sounds bilaterally. ABDOMEN: Soft, nontender. No guarding. EXTREMITIES: No clubbing. No cyanosis. No edema. NEUROLOGIC: The patient is currently on the ve ntilator, unresponsive to loud stimuli. HEAD AND NECK: The patient does have large bruising across his right side of his temporofrontal area secondary to his recent fall. LABORATORY STUDIES/DATA: Laboratory values currently show a white count of 10,000, hemoglobin 9, hem atocrit 26.2, platelet count 103,000. INR is currently 1.3. Creatinine 0.8, BUN 19, sodium 138, pot assium 4.1, magnesium 2.4. ASSESSMENT AND PLAN: Status post evacuation of subdural hematoma/extensive cardiac disease history. At this time, the patient appears to be in controlled atrial fibrillation, with a rate of 70-80. Of note, after talking to the nursing staff, the patient did have his heart rate reducing into the 30s; however, given his acute neurologic issues, it is not unusual to have patient's heart rates vary wit h acute neurologic insults. Additionally, after speaking in length with the patient's and famil y, it seems that the inciting event was not a syncopal episode, but rather a misstep which resulted i n the patient's fall, making the bradycardia less likely the etiology for the patient's presentation. Of note, the patient's x-ray does show what appears to be left atrial ligation, as well as a biopro sthetic valve, most likely in the mitral position. This is would be fortuitous, as placing the patie nt back on a blood thinner obviously would not be the best-case scenario at this point, given his acu te subdural hematoma. We will obtain an echocardiogram as soon as possible to verify that this is in deed a bioprosthetic valve. If this is not a mechanical valve, we can hopefully hold off on re-start ing any anticoagulation therapy until the patient has made it through this acute neurologic bleeding issue. We will follow along with you. Thank for the consultation. No indications for temporary pac emaker wire at this point either, given the patient's stable heart rate at this time. /[id number]/MODL
[2018-07-07] MEDS: niCARdipine/NACL 200 ML IV PRN ×2 (13:15→18:19)
--- NOTE | 2018-07-07 13:43 | ECHO ---
[email or web address] [address] [address] Main: [phone] Fax: Transthoracic Echocardiogram Name: FREEMAN ALICEA MR#: [id number] Study Date: 07/07/2018 Study Time: 11:47 AM Date of : 1930 Age: 87 year(s) Height: 170.2 cm (67 in.) Weight: 68.04 kg (150 lb.) BSA: 1.79 m2 Gender: Male Examination: Echo Indication: s/p bio prosthetic MVR 2012; afib Image Quality: Adequate Contrast: Requested by: Barney Robles BP: 138 mmHg/51 mmHg Heart Rate: Rhythm: Indication: s/p bio prosthetic MVR 2012; afib Procedure Staff Client Resource Specialist: Sharyn Zuniga [facility] Reading Physician: Barney Robles MD Requesting Provider: Conclusions: Normal global systolic LV function. EF is 65 %. Moderately reduced RV function. The left atrium is severely dilated. The right atrium is severely dilated. A bioprosthetic mitral valve is in place.. No significant mitral regurgitation. Mean gradient across the MVR 4mmHg. Moderate aortic cusp calcification is present. Mild calcific aortic valve stenosis. The tricuspid valve leaflets do not seem to coapt due to RV dilatation. Severe tricuspid regurgitation is present. Right ventricular systolic pressure measures 35mmHg. PA pressure may be underestimated secondary to dilated RA/reduced RV function. Measurements: Chambers Valvular Assessment AV/MV Valvular Assessment TV/PV Normal Normal Normal Name Value Range Name Value Range Name Value Range Ao Alyson (MM): 3.8 cm (2.2 cm-3.7 AV meanP mmHg ( - ) TR Vmax: 2.48 mm/s ( - ) cm) AN (VTI): 1.8 cm ( - ) TR PGmax: 25 mmHg ( - ) IVSd (2D): 1.4 cm (0.6 cm-1.1 MV meanP mmHg ( - ) syst. PAP: 35 mmHg ( - ) cm) MV PHT: 0.074 s ( - ) PV Vmax: 0.75 m/s (0.6 m/s-0.9 LVDd (2D): 4.4 cm (4.2 cm-5.9 MVA (Vmax): 2.1 m/s ( - ) m/s) cm) MVA (PHT): 3.0 s ( - ) PV PGmax: 2 mmHg ( - ) LVDs (2D): 2.4 cm (2.1 cm-4 cm) LVPWd (2D): 1.0 cm (0.6 cm-1 cm) LVOTd 2.1 cm 2.1 cm mm LVEF (2D): 65 (>=54 %) Patient: FREEMAN ALICEA Study Date: 07/07/2018 Page 1 of 2 11:47 AM RVDd(2D): 4.7 cm (1.9 cm-3.8 cmmm) Continued Measurements: Chambers Valvular Assessment AV/MV Valvular Assessment TV/PV Name Value Name Value Name Value LADs Lon.2 cm MV VTI: 35.60 cm CVP (est.): 10 mmHg LA Area: 29.3 cm2 TAPSE: 1.3 cm Additional Vessels Name Value Ao Ascendin.5 cm Findings: Left Ventricle: Normal size left ventricle. There is a sigmoid shaped septum is present, which is a normal finding in the elderly. . Normal global systolic LV function. EF is 65 %. No regional wall motion abnormality. Mild posterior wall hypertrophy. Diastolic function is indeterminate due to atrial fibrillation and MVR. Right Ventricle: Moderately dilated right ventricle. Moderately reduced RV function. Left Atrium: The left atrium is severely dilated. Unable to accurately measure LA volume in 2 chamber due to foreshortened window. Right Atrium: The right atrium is severely dilated. 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 Mitral Valve: A bioprosthetic mitral valve is in place.. No significant mitral regurgitation. Mean gradient across the MVR 4mmHg. Aortic Valve: The aortic valve is tri-leaflet. CA+. Moderate aortic cusp calcification is present. There is no aortic valve regurgitation. Mild calcific aortic valve stenosis. Tricuspid Valve: The tricuspid valve leaflets do not seem to coapt due to RV dilatation. Severe tricuspid regurgitation is present. Right ventricular systolic pressure measures 35mmHg. PA pressure may be underestimated secondary to dilated RA/reduced RV function. Pulmonic Valve: Pulmonary valve not well visualized. Trivial to mild pulmonic valve regurgitation. Aorta: Normal size aortic root measuring 3.8 cm. Normal size ascending aorta measuring 3.5 cm. IVC: The IVC is dilated. Pericardium: No pericardial effusion. (No Signature Object) Patient: FREEMAN ALICEA Study Date: 07/07/2018 Page 2 of 2 11:47 AM [id number]
--- NOTE | 2018-07-07 13:44 | TRAUMAPNT ---
Trauma Tertiary Progress Note New Findings: mri revealing nuchal lig tear, cervical and thoracic epidural hematoma, possible vertebral art dissection. no other physical signs of trauma apart from known head and neck issues. lungs clear. chest stablile. abd scaphoid and soft. extremities atraumatic, both hands swollen. Objective: Vital Signs Temp Pulse Resp BP Pulse Ox 37.4 C 67 15 131/51 H 94 07/07/18 13:00 07/07/18 13:00 07/07/18 13:00 07/07/18 13:00 07/07/18 13:00 Laboratory Results 07/07/18 06:15 07/07/18 06:15 07/06/18 07/07/18 07/08/18 05:59 05:59 05:59 Intake Total 3919 Output Total 2213 181 Balance 1706 -181 PT 16.4 SEC (12.0-15.0) H 07/07/18 06:15 INR 1.30 (0.83-1.16) H 07/07/18 06:15
--- NOTE | 2018-07-07 13:46 | SOAPPROG ---
SOAP Progress Note Assessment/Plan: Assessment/Plan Subjective: pt gives thumbs up with right hand on command, moving in bed on cpap trial, may be extubated. mri findings inc possible vert dissection- will get ct angio later today- would hold off any further asa therapy in light of brain bleed and drain in place until cleared by neurosurgery. Objective: Vital Signs Temp Pulse Resp BP Pulse Ox 37.4 C 67 15 131/51 H 94 07/07/18 13:00 07/07/18 13:00 07/07/18 13:00 07/07/18 13:00 07/07/18 13:00 Laboratory Results 07/07/18 06:15 07/07/18 06:15 07/06/18 07/07/18 07/08/18 05:59 05:59 05:59 Intake Total 3919 Output Total 2213 181 Balance 1706 -181 PT 16.4 SEC (12.0-15.0) H 07/07/18 06:15 INR 1.30 (0.83-1.16) H 07/07/18 06:15 ICD10 Worksheet Patient Problems: Problems Problem Status Onset Subdural hematoma Acute
--- NOTE | 2018-07-07 14:43 | PDHOSCONS ---
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 Per his , he reportedly lost his footing and hit the right side of his head while carrying a basket in one hand and using a cane with the other. He did not lose consciousness at the time but his mental status began to worsen over the coming hours prompting presentation to the ED where he was found to have a large right sided subdural hematoma with mass effect/9mm midline shift resulting in left sided paresis. His INR was 3.3 on arrival and he was given PCC and vitamin K. He was emergently taken to OR for right craniotomy and evacuation. Received 2u PRBC. He remained intubated after the procedure and has been admitted to the ICU. In the ICU he has had labile BP as he was initially hypertensive requiring nicardipine gtt; however, became hypotensive requiring dopamine. Repeat head CT showed a new ICH just lateral to right putamen but decreased midline shift. A cervical MRI was ordered and showed a nuchal ligament teart at C2 and he has remained in a c-collar. This afternoon, he was extubated to supplemental oxygen. His initial ECG demonstrates rate controlled atrial fibrillation (unclear if this is chronic). He developed bradycardia on the morning of 07/07. A TTE was performed which showed a bioprosthetic MV with LA dilation, elevated pulmonary pressures, moderate RV dysfunction, severe TR. Additionally, chest x-ray shows a left atrial appendage ligature. Medicine has been consulted for help with coordinating care and management of chronic medical problems. History Information - Allergies/Home Medication List Allergies/Adverse Reactions: amoxicillin Allergy (Verified 07/06/18 11:29) Diarrhea hydrochlorothiazide Allergy (Verified 07/06/18 11:29) lisinopril Allergy (Verified 07/06/18 11:29) Cough simvastatin [From Zocor] Allergy (Verified 07/06/18 11:29) Myalgia tramadol Allergy (Verified 07/06/18 11:29) Rash Home Medications: Acetaminophen [Tylenol ES 500 mg (*)] 1,000 mg PO Q6HRS PRN 07/06/18 [Last Taken 07/06/18] Ascorbic Acid [Vitamin C 500 mg (*)] 500 mg PO DAILY@12 07/06/18 [Last Taken 10/10] Aspirin [Aspirin 81mg (*)] 81 mg PO DAILY 07/06/18 [Last Taken 07/05/18] Atorvastatin Calcium [Lipitor 20 mg (*)] 20 mg PO HS 07/06/18 [Last Taken ] Bumetanide [Bumex (*)] 2 mg PO TID@,,07/06/18 [Last Taken 07/05/18 15:00] Ferrous Sulfate [Ferrous Sulf 325 MG (*)] 325 mg PO DAILY 07/06/18 [Last Taken 07/05/18] Herbals/Supplements -Info Only 1 ea PO DAILY 07/06/18 [Last Taken Unknown] Latanoprost 0.005% [Xalatan 0.005% (*)] 1 drops EACHEYE HS 07/06/18 [Last Taken 07/05/18] Spironolactone [Aldactone 25 MG (*)] 12.5 mg PO BID 07/06/18 [Last Taken 21:00] Tamsulosin HCl [Flomax 0.4 MG (*)] 0.4 mg PO DAILY 07/06/18 [Last Taken Unknown] Warfarin Sodium [Coumadin 5MG (*)] 5 mg PO HS 07/06/18 [Last Taken 07/05/18] I have personally reviewed and updated: family history, medical history, social history, surgical history - Past Medical History Additional medical history: bioprosthetic MV replacement, 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 Physical Exam Physical Exam: Temp Pulse Resp BP Pulse Ox 37.4 C 88 14 122/58 H 100 07/07/18 13:00 07/07/18 14:00 07/07/18 14:00 07/07/18 14:00 07/07/18 14:00 FIO2 (%) 100 Constitutional: no apparent distress, not in pain, other (somnolent while sedation is wearing off) Eyes: other (would not open eyelids; has large right periorbital ecchymosis with hematoma on right forehead) Cardiovascular: systolic murmur (loud,harsh at apex with radiation to axilla), other (irregularly irregular, rate controlled), No JVD, No edema Respiratory: no respiratory distress, other (clear anterolaterally), No expiratory wheeze Gastrointestinal: normoactive bowel sounds, soft, non-tender abdomen, no palpable masses Genitourinary: zelaya in urethra Skin: other (scattered bruises) Neurologic: weakness (3/5 strenght in LUE and LLE, 5/5 strength in RUE and RLE) , other (sedated, responding to verbal stimuli and following simple commands) Lab Data & Imaging Review 07/07/18 15:05 07/07/18 06:15 WBC 10.63 10^3/uL (3.80-9.50) H 07/07/18 06:15 RBC 2.70 10^6/uL (4.40-6.38) L 07/07/18 06:15 Hgb 9.0 g/dL (13.7-17.5) L 07/07/18 06:15 POC Hgb 11.2 gm/dL (13.7-17.5) L 07/06/18 10:15 Hct 26.2 % (40.0-51.0) L 07/07/18 06:15 POC Hct 33 % (40-51) L 07/06/18 10:15 MCV 97.0 fL (81.5-99.8) 07/07/18 06:15 MCH 33.3 pg (27.9-34.1) 07/07/18 06:15 MCHC 34.4 g/dL (32.4-36.7) 07/07/18 06:15 RDW 14.7 % (11.5-15.2) 07/07/18 06:15 Plt Count 103 10^3/uL (150-400) L 07/07/18 06:15 MPV 11.5 fL (8.7-11.7) 07/07/18 06:15 Neut % (Auto) 82.6 % (39.3-74.2) H 07/07/18 06:15 Lymph % (Auto) 7.1 % (15.0-45.0) L 07/07/18 06:15 Burke % (Auto) 9.6 % (4.5-13.0) 07/07/18 06:15 Eos % (Auto) 0.0 % (0.6-7.6) L 07/07/18 06:15 Baso % (Auto) 0.2 % (0.3-1.7) L 07/07/18 06:15 Nucleat RBC Rel Count 0.0 % (0.0-0.2) 07/07/18 06:15 Absolute Neuts (auto) 8.78 10^3/uL (1.70-6.50) H 07/07/18 06:15 Absolute Lymphs (auto) 0.76 10^3/uL (1.00-3.00) L 07/07/18 06:15 Absolute Monos (auto) 1.02 10^3/uL (0.30-0.80) H 07/07/18 06:15 Absolute Eos (auto) 0.00 10^3/uL (0.03-0.40) L 07/07/18 06:15 Absolute Basos (auto) 0.02 10^3/uL (0.02-0.10) 07/07/18 06:15 Absolute Nucleated RBC 0.00 10^3/uL (0-0.01) 07/07/18 06:15 Immature Gran % 0.5 % (0.0-1.1) 07/07/18 06:15 Immature Gran # 0.05 10^3/uL (0.00-0.10) 07/07/18 06:15 PT 16.4 SEC (12.0-15.0) H 07/07/18 06:15 INR 1.30 (0.83-1.16) H 07/07/18 06:15 APTT 30.3 SEC (23.0-38.0) 07/07/18 06:15 Puncture Site ARTERIAL LINE 07/07/18 06:15 Patient Temperature 37.0 DEGREES 07/07/18 06:15 pCO2 40 mmHg (34-38) H 07/07/18 06:15 pO2 74 mmHg (65-75) 07/07/18 06:15 Total CO2 28 mEq/L (23-27) H 07/07/18 06:15 ABG pH 7.44 (7.35-7.45) 07/07/18 06:15 ABG PO2/FiO2 Ratio 248 RATIO 07/07/18 06:15 ABG HCO3 27 mEq/L (22-26) H 07/07/18 06:15 ABG O2 Saturation 95 % (92-95) 07/07/18 06:15 ABG Base Excess 3.1 mEq/L (-2.5-2.5) H 07/07/18 06:15 O2 Concentration % 30 % (0-100) 07/07/18 06:15 Actual Respiration Rate 12 07/07/18 06:15 Set Respiration Rate 9 07/07/18 06:15 SIMV YES 07/06/18 22:00 Tidal Volume 450 07/07/18 06:15 End Tidal CO2 27 07/07/18 06:15 PEEP 5 07/07/18 06:15 Pressure Support 7 07/07/18 06:15 POC Sodium 137 mEq/L (135-145) 07/06/18 10:15 Sodium 138 mEq/L (135-145) 07/07/18 06:15 POC Potassium 3.3 mEq/L (3.3-5.0) 07/06/18 10:15 Potassium 4.1 mEq/L (3.3-5.0) 07/07/18 06:15 POC Chloride 96 mEq/L (97-110) L 07/06/18 10:15 Chloride 104 mEq/L (97-110) 07/07/18 06:15 Carbon Dioxide 28 mEq/l (22-31) 07/07/18 06:15 Anion Gap 6 mEq/L (8-16) L 07/07/18 06:15 POC BUN 19 mg/dL (7-23) 07/06/18 10:15 BUN 19 mg/dL (7-23) 07/07/18 06:15 Creatinine 0.8 mg/dL (0.7-1.3) 07/07/18 06:15 POC Creatinine 1.0 mg/dL (0.7-1.3) 07/06/18 10:15 Estimated GFR > 60 07/07/18 06:15 Glucose 105 mg/dL (70-100) H 07/07/18 06:15 POC Glucose 119 mg/dL (70-100) H 07/06/18 10:15 Calcium 8.2 mg/dL (8.5-10.4) L 07/07/18 06:15 Magnesium 2.4 mg/dL (1.6-2.3) H 07/07/18 06:15 Patient ABO/Rh A POSITIVE 07/06/18 12:20 Antibody Screen NEGATIVE 07/06/18 12:20 Crossmatch IS Only See Detail 07/06/18 12:20 Visualized and Interpreted Chest x-ray results: Yes Interpretation: CXR: cardiomegaly, MV replacement, WENDY ligature in place, sternotomy wires, enlarged pulmonary arteries consistent with PH, clear costophrenic angles, no infiltrate or significant pulmonary edema, R subclavian CVC, ETT in appropriate position (interpreted by me). 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 We have been asked to help coordinate his care and help with his chronic medical conditions. Plan: #Pulmonary hypertension with resultant cor pulmonale: Compensated at moment. We are holding home bumex and spironolactone. Ok with fluids at low rate while NPO. Monitor volume status closely. #Acute respiratory failure: Now extubated. Food And Beverage Checker following. Encourage pulmonary toilet/IS. Wean O2 as tolerates. #Encephalopathy: Related to bleed. Off sedation now. Delirium precautions, PT/ OT when safe from nsgy stand point. #Labile BP: Goal SBP<140 but keep MAP>65. Agree with dopamine/nicardipine for this (currently off). Cautious with IVF moving forward. #Atrial fibrillation: Predisposed to AF/AFL with severely dilated LA/RA. He has a WENDY ligature on x-ray which is helpful in this situation as we are not restarting anticoagulation. #Bradycardia: Intermittent. Suspect related to Daniela's reflex. Cardiology following. No indication for pacing at moment. Telemetry. #Bioprosthetic MV replacement: Normal gradients on TTE. We are holding anticoagulation in setting of above. Resume once acute neurologic issues resolved. #Anemia: Borderline macrocytic. Hg 10.5 on arrival. S/p 2u PRBC after surgery. He is on Fe supplements at home which we will continue. #Warfarin-induced coagulopathy: Reversed with PCC/vit K on arrival. Monitor daily. #Right subdural hematoma with extension into cervical spine: S/p R craniotomy and evacuation on 07/06. New focal ICH lateral to putamen demonstrated on repeat head CT. Has [address] Neurosurg planning repeat head CT 07/08 AM. On kera with regular neuro checks. #Possible L vertebral artery dissection: CTA ordered. #C2 nuchal ligament tear: Neurosurgery recommends continued c-collar. Will defer to them duration of this. Repeat MRI ordered for tomorrow. #HLD: Continue home statin. #BPH: Continue flomax. Has zelaya in place. Remove as able. Diet: NPO. Plan for OUTREACH PROFESSIONAL eval tomorrow VTE ppx: SCDs Code: full Thank you for this consult. We will continue to follow along.
[2018-07-07] MEDS ORDERED: IOPAMIDOL (ISOVUE 370) 100 ML BTL IV ONE (15:46)
[2018-07-07] MEDS: ATORVASTATIN CALCIUM 20 MG TAB PO SCH (21:21)
[2018-07-08] MEDS ORDERED: ACETAMINOPHEN 325 MG TAB PO PRN (01:00)
[2018-07-08] MEDS: ACETAMINOPHEN 650 MG SUPP PR PRN ×3 (01:22→21:09)
[2018-07-08 04:12] LABS: INR 1.36 (0.83-1.16); PROTIME(PATIENT) 16.9 SEC (12.0-15.0)
[2018-07-08] MEDS: niCARdipine/NACL 200 ML IV PRN ×3 (04:26→18:01)
[2018-07-08 04:34] LABS: PLATELET COUNT 94 10^3/uL (150-400)
--- NOTE | 2018-07-08 08:28 | NEUSURGPN ---
Date of Surgery: 07/06/18 Post Op Day: 2 Assessment/Plan: 87 yo male who takes COumadin POD #2 sp emergent right crani for acute SDH after a fall Neuro exam grossly stable with left hemiplegia and purposeful right sided movement to stimulation New right sided ICH called stable, but with new noncompressive bleed along corpus callosum on CTH this AM - will follow. MRI yesterday with cervical subdural hematoma appreciated, no vert dissection. Plan: CPM on vent. Will give 100% O2, 2hr on /2 hr off x 24 hrs to help with pneumocephalus for another 24 hours. SD drain to shoulder level per Dr Shields pull subgaleal DAMIÁN today SBP 100-140, q2h neuro's repeat MRI Cspine later today Maintenance fluids 75cc/hr Defer to medicine for when placement dobhoff for nutrition necessary. dw Dr. Campbell Subjective: clinically doing better, extubated and talking some, updated by nursing staff Objective: opens eyes to voice and light stimulation speech difficult to understand but answers questions appropriately PEARLA Moves right side spontaneously, follows commands, antigravity Hemiplegic on left JPx1 subgaleal serosanguineous ,5cc. SD V[place] heme colored drainage average 8cc/hr. Urinary Catheter in Place: Yes Urinary Catheter Indication: Accurate I & O Required - Physician Discussed Patient with : Alyson Neurosurgery Physical Exam - Vitals, I&O, Labs I and O 07/07/18 07/08/18 07/09/18 05:59 05:59 05:59 Intake Total 3919 1424.7 20 Output Total 2213 2078 113 Balance 1706 -653.3 -93 Weight 68.039 kg 69.1 kg Intake: IV Intake (ml) 349 IV Infused (ml) 2770 1424.7 20 Albumin 5% 500 ml @ As 1000 Directed IV ONCE ONE Rx#: [id number] DOPamine/DEXTROSE 250 ml 157 16.4 @ Titrate IV CONT DENISE Rx# :[id number] NS W/ 20 KCl/L 1,000 ml @ 1344 993 100 mls/hr IV CONT DENISE Rx#:[id number] Propofol/Emulsion 100 ml 97 8.1 @ Per Protocol IV CONT DENISE Rx#:[id number] fentaNYL/NACL 100 ml @ 77 19.2 Per Protocol IV CONT DENISE Rx#:[id number] niCARdipine/NACL 200 ml @ 95 388 20 Titrate IV PRN PRN Rx#: [id number] Packed Red Blood Cells ( 800 ml) Output: Urine (ml) 1969 1774 60 Catheter 1969 1774 60 CSF Drainage Amount 146 53 Right 146 53 Other Neuro Drain Output 243 157 (ml) Left 205 Posterior 38 157 DAMIÁN Drain Output (ml) 0 Left Gonzalez Marrufo 0 Vital Signs Temp Pulse Resp BP Pulse Ox 37.2 C 84 16 126/47 H 94 07/08/18 07:52 07/08/18 07:52 07/08/18 07:52 07/08/18 07:52 07/08/18 07:52 Laboratory Results 07/08/18 03:55 07/08/18 03:55 ICD10 Worksheet Patient Problems: Problems Problem Status Onset Subdural hematoma Acute
[2018-07-08] MEDS: TAMSULOSIN HCL 0.4 MG CAP PO SCH (08:38)
[2018-07-08] MEDS: FERROUS SULFATE 325 MG TAB PO SCH (08:38)
[2018-07-08] MEDS: SENNOSIDES/DOCUSATE SODIUM TAB PO SCH ×2 (08:38→19:45)
[2018-07-08] MEDS: levETIRAcetam 750 MG in NS 100 ML IV SCH ×2 (08:42→21:09)
[2018-07-08] MEDS: FAMOTIDINE 20 MG/NACL 50 ML IV SCH (08:43)
--- NOTE | 2018-07-08 09:03 | SOAPPROG ---
[facility] Progress Note Assessment/Plan: Assessment: 87-year-old male with a recent mechanical fall sustaining significant head neck trauma complicated by subdural hematoma. He has a cardiovascular history of what is likely permanent atrial fibrillation, valvular heart disease status post bioprosthetic mitral valve replacement and left atrial appendage ligation. Historically he has been on systemic anticoagulation with Coumadin which is currently being appropriately held in the setting of his recent trauma and subdural hematoma. Fortunately at the time of his cardiovascular surgery his left atrial appendage was ligated placing him at significantly lower risk for embolic stroke in the setting have his atrial fibrillation. Initially, there were concerns about bradycardia however his heart rates have improved and it sounds as if his initial event was a mechanical fall and not a syncopal event. It may be that his initial bradycardia was related to his subdural hematoma and recent neurosurgery. There is no indication at the present time that he requires placement of a either a temporary or permanent pacemaker as he has not manifested pathologic bradycardia and/or hemodynamic instability. Plan: 1. Continue to hold systemic anticoagulation as needed to affectively treat his head and neck trauma. 2. Continue to monitor on telemetry. 3. We may consider an outpatient extended monitor following recovery from this acute event. 4. At the present time we will sign off. Please call us if there are any further questions. 07/08/18 08:59 Subjective: Stable from a cardiovascular standpoint overnight. Remains in atrial fibrillation. Heart rates have increased without documented pauses. I reviewed the neuro surgical progress note. There are no plans for neuro surgery today. Intracranial hemorrhages are being followed. He had an echocardiogram yesterday indicating a bioprosthetic mitral valve. Objective: Vital Signs Temp Pulse Resp BP Pulse Ox 37.2 C 84 16 126/47 H 94 07/08/18 07:52 07/08/18 07:52 07/08/18 07:52 07/08/18 07:52 07/08/18 07:52 Laboratory Results 07/08/18 03:55 07/08/18 03:55 07/07/18 07/08/18 07/09/18 05:59 05:59 05:59 Intake Total 3919 1424.7 20 Output Total 2213 2078 133 Balance 1706 -653.3 -113 PT 16.9 SEC (12.0-15.0) H 07/08/18 03:55 INR 1.36 (0.83-1.16) H 07/08/18 03:55 Physical Exam - Physical Exam General Appearance: WD/WN, other (Intubated) EENT: other (Evidence of facial trauma) Neck: other (Deferred) Respiratory: other (Intubated on mechanical ventilation clear lung garcia anterior) Cardiac/Chest: systolic murmur (1/6 holosystolic murmur left sternal border), irregularly irregular ICD10 Worksheet Patient Problems: Problems Problem Status Onset Subdural hematoma Acute
[2018-07-08] MEDS ORDERED: PHYTONADIONE 10 MG in NS 50 ML IV ONE (10:09)
[2018-07-08] MEDS ORDERED: NS W/ 20 KCl/L 1,000 ML IV SCH (11:00)
[2018-07-08] MEDS ORDERED: FUROSEMIDE 20 MG/2 ML VIAL ONE (11:31)
[2018-07-08] MEDS ORDERED: FUROSEMIDE 20 MG/2 ML VIAL IVP ONE (11:45)
[2018-07-08] MEDS ORDERED: BUMETANIDE 1 MG/4 ML VIAL IVP ONE ×2 (13:24→16:45)
--- NOTE | 2018-07-08 13:43 | PDINTPN ---
[facility] Progress Note Assessment/Plan: Assessment: S/P fall S/P SDH with evacuation 07/06 Intraparnechymal Hemorrhages: Stalbe moderate-sized right putamen, new small corpus collosum. Hypotension: Initially hypertensive, then developed hypotension that responded to IVF and DA. Now off DA Hypoxemia: Likely due to CHF, atelectasis. Pneumonia from aspiration also possible, with climbing WBC, but has no fever. AF: Rate OK Anticoagulation: For Valve replacement and AF. Now reversed. Anemia: Up after transfusion. Nutrition: None since admit. Probably not ready for a swallow eval yet. Plan: Follow BP. Hold sedation. Bumex, repeat PRN. Give Vitamin K to prevent rebound coagulopathy once PCC wears off, as he is not eating. Increase activity as tolerated. Consider feeding tube if not eating in the next 24-48 hours. 07/08/18 13:47 07/08/18 13:48 Subjective: Responds to commands, no pain. Objective: Vital Signs Temp Pulse Resp BP Pulse Ox 36.9 C 108 H 16 133/55 H 95 07/08/18 12:56 07/08/18 12:56 07/08/18 12:56 07/08/18 12:56 07/08/18 12:56 Laboratory Results 07/08/18 03:55 07/08/18 03:55 07/07/18 07/08/18 07/09/18 05:59 05:59 05:59 Intake Total 3919 1424.7 20 Output Total 2213 2078 564 Balance 1706 -653.3 -544 PT 16.9 SEC (12.0-15.0) H 07/08/18 03:55 INR 1.36 (0.83-1.16) H 07/08/18 03:55 CTH: New hemorrhage posterior corpus collosum. Stable 4 x 2.6 cmH2o right putamen hemorrhage. Images reviewed by me. CXR: Increased basilar opacities Images reviewed by me. Laboratory Tests 07/08/18 03:55 INR 1.36 H Physical Exam - Physical Exam General Appearance: no apparent distress EENT: other (s/p craniotomy) Neck: normal inspection, other (c-collar) Respiratory: lungs clear Cardiac/Chest: irregularly irregular Abdomen: normal bowel sounds, non-tender Skin: normal color, warm/dry Extremities: normal inspection Neuro/Psych: motor weakness (left), No alert (arousable), No oriented x 3 ICD10 Worksheet Patient Problems: Problems Problem Status Onset Subdural hematoma Acute
--- NOTE | 2018-07-08 14:03 | SOAPPROG ---
SOAP Progress Note Assessment/Plan: Assessment/Plan Subjective: post op day [address] shows no vertebral artery dissection. follows commands, moves right side, left side withdraws fom pain. saying a few words pupils equal lungs clear heart no m abds soft urine output low- will increase hourly fluids to 80 mls / hr total assess; new intraparenchymal bleeds, no sig sub dural. repaeat mri pending. no swallowing eval done yet- will need dobhoff in 1-2 days if unimproved. Objective: Vital Signs Temp Pulse Resp BP Pulse Ox 36.9 C 108 H 16 133/55 H 95 07/08/18 12:56 07/08/18 12:56 07/08/18 12:56 07/08/18 12:56 07/08/18 12:56 Laboratory Results 07/08/18 03:55 07/08/18 03:55 07/07/18 07/08/18 07/09/18 05:59 05:59 05:59 Intake Total 3919 1424.7 20 Output Total 2213 2078 564 Balance 1706 -653.3 -544 PT 16.9 SEC (12.0-15.0) H 07/08/18 03:55 INR 1.36 (0.83-1.16) H 07/08/18 03:55 ICD10 Worksheet Patient Problems: Problems Problem Status Onset Subdural hematoma Acute
--- NOTE | 2018-07-08 14:58 | HOSPPROG ---
Hospitalist Progress Note Assessment/Plan: 87 yo M w chf, bioprosthetic MV here w mechanical fall, SDH, epidural hematoma, intraparenchymal hemorrhage and increasing oxygen requirements AHRF: has been present whole admission cxr worse today suspect fluid- diurese w bumex as has poor response to lasix if no response, reasonable to over w abx for aspiration- unasyn or ertapenem air space disease makes PE unlikely SDH: s/p evacuation warfarin reversed follow inr tomorrow epidural hematoma: s/p MRI today encephalopathy makes evaluation of neuro exam difficult intraparenchymal hemorrhage: inr reversed AF; transient has WENDY closure device C2 nuchal ligamnet tear: hard collar dispo: icu Subjective: case d/w dr pichardo, dr chaves. cxr w b/l airspace disease, likely volume overload (interp by me). increasing 02 requirements Objective: Vital Signs Temp Pulse Resp BP Pulse Ox 36.9 C 108 H 16 133/55 H 95 07/08/18 12:56 07/08/18 12:56 07/08/18 12:56 07/08/18 12:56 07/08/18 12:56 Laboratory Results 07/08/18 03:55 07/08/18 03:55 07/07/18 07/08/18 07/09/18 05:59 05:59 05:59 Intake Total 3919 1424.7 20 Output Total 2213 2078 564 Balance 1706 -653.3 -544 PT 16.9 SEC (12.0-15.0) H 07/08/18 03:55 INR 1.36 (0.83-1.16) H 07/08/18 03:55 - Physical Exam Constitutional: no apparent distress, other (sedated, hard collar) Eyes: PERRL, anicteric sclera Ears, Nose, Mouth, Throat: moist mucous membranes, hearing normal Cardiovascular: tachycardia, No systolic murmur Respiratory: no respiratory distress, other (difficult exam, b/l air moveent) Gastrointestinal: normoactive bowel sounds, soft, non-tender abdomen Genitourinary: no bladder fullness, zelaya in urethra Skin: warm, normal color Musculoskeletal: No full muscle strength Neurologic: No AAOx3 Psychiatric: No interacting appropriately Lymph, Heme, Immunologic: no cervical LAD ICD10 Worksheet Patient Problems: Problems Problem Status Onset Subdural hematoma Acute
[2018-07-08] MEDS ORDERED: PROTOCOL POTASSIUM 1 DOSE MISC PRN (15:57)
[2018-07-08] MEDS ORDERED: POTASSIUM Cl (KCl) 50 ML IV ONE (18:09)
[2018-07-08] MEDS: ATORVASTATIN CALCIUM 20 MG TAB PO SCH (19:44)
[2018-07-09] MEDS: niCARdipine/NACL 200 ML IV PRN ×4 (02:44→20:42)
[2018-07-09 05:17] LABS: INR 1.26 (0.83-1.16)
[2018-07-09 05:50] LABS: PLATELET COUNT 127 10^3/uL (150-400)
[2018-07-09] MEDS: TAMSULOSIN HCL 0.4 MG CAP PO SCH (07:13)
[2018-07-09] MEDS: SENNOSIDES/DOCUSATE SODIUM TAB PO SCH ×2 (07:13→23:39)
[2018-07-09] MEDS: FERROUS SULFATE 325 MG TAB PO SCH (07:13)
--- NOTE | 2018-07-09 07:47 | TRAUMAPN ---
Trauma Progress Note - Problem/Surgery Performed (1) Fall at home Assessment/Plan: mechanism of injury Qualifiers: Encounter type: initial encounter Qualified Code(s): W19.XXXA - Unspecified fall, initial encounter; Y92.009 - Unspecified place in unspecified non-institutional (private) residence as the place of occurrence of the external cause; Y92.009 - Unspecified place in unspecified non-institutional ( private) residence as the place of occurrence of the external cause (2) Atrial fibrillation Assessment/Plan: currently anticoagulation due to SDH/crani rate moderately well controlled Qualifiers: Atrial fibrillation type: paroxysmal Qualified Code(s): I48.0 - Paroxysmal atrial fibrillation (3) Other specified nutritional deficiencies Assessment/Plan: not likely to progress to safe swallowing in the near future I would recommend a Dobhoff feeding tube for nutritional support via enteral feeding (4) Subdural hematoma Assessment/Plan: s/p Crani/evacuation with severe neuro deficit pre/post op anticipate slow recovery cont OT/PT/ST Assessment/Plan: s/p fall with SDH/crani for evacuation clinical neurologic deficit is considerable and will require assisted neuro- rehab he has a mounting nutritional deficit that will benefit from enteral feedings will repeat CXR and discuss enteral feedings with family consider PICC and early right subclavian removal remove or change ER IV right ACF Subjective: somnolent/opens right eye to command. able to squeeze right hand to command. non-verbal currently Objective: Vital Signs Temp Pulse Resp BP Pulse Ox 36.9 C 76 16 123/51 H 99 07/09/18 05:59 07/09/18 07:00 07/09/18 07:00 07/09/18 07:00 07/09/18 07:00 Laboratory Results 07/09/18 04:30 07/09/18 04:30 07/08/18 07/09/18 07/10/18 05:59 05:59 05:59 Intake Total 1424.7 1677 Output Total 5488 2472 7 Balance -653.3 -795 -7 PT 16.0 SEC (12.0-15.0) H 07/09/18 04:30 INR 1.26 (0.83-1.16) H 07/09/18 04:30 - C-Spine Clearance Cervical Spine Cleared: No Physical Exam - Physical Exam General Appearance: other (somnolent elderly male/bed elevated at 20 deg) EENT: other (recent craniotomy/dressings dry, [id number], right ree-orbital ecchymosis) Neck: other (hard cervical collar in place/trachea midline) Respiratory: decreased breath sounds (right base/vesicular breath sounds) Cardiac/Chest: tachycardia, irregularly irregular, other (right subclavian 3x lumen cath) Peripheral Pulses: 4+: femoral (R), femoral (L) Abdomen: normal bowel sounds, non-tender, soft Male Genitalia: other (Tate cath) Rectal: deferred Skin: pallor Extremities: other (SCDs in place/righ ACF IV ER stick) Neuro/Psych: motor weakness (LUE), cognition abnormalities, speech abnormalities , depressed affect, other (moving RUE, RLE and LLE)
[2018-07-09] MEDS: levETIRAcetam 750 MG in NS 100 ML IV SCH ×2 (09:54→21:00)
[2018-07-09] MEDS: FAMOTIDINE 20 MG/NACL 50 ML IV SCH (09:54)
[2018-07-09] MEDS ORDERED: BUMETANIDE 1 MG/4 ML VIAL IVP ONE (10:01)
--- NOTE | 2018-07-09 11:52 | NEUSURGPN ---
Assessment/Plan: 87 yo male who takes COumadin POD #3 sp emergent right crani for acute SDH after a fall Neuro exam improved somewhat. continue with left hemiplegia and but now speaking some and following commands on Right side. New right sided ICH stable on repeat CT 07/08, pneumo and SDH improving MRI with cervical subdural hematoma appreciated, stable on repeat MR 07/08 Plan: DC SD drain SBP 100-140, q2h neuro's Maintenance fluids 75cc/hr PT/OT/ACCOUNTING ASSISTANT as able, still quite lethargic Defer to medicine for when placement dobhoff for nutrition necessary. dw Dr. Campbell Subjective: pt sleeping. 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 SD Vaca straw colored drainage, removed and edmond placed Urinary Catheter in Place: Yes Urinary Catheter Indication: Accurate I & O Required, Other (Use Comment) - Physician Discussed Patient with : Alyson Neurosurgery Physical Exam - Vitals, I&O, Labs I and O 18 07/09/18 07/10/ 05:59 05:59 05:59 Intake Total 1424.7 1677 Output Total 2078 2472 36 Balance -653.3 -795 -36 Weight 72.5 kg Intake: Oral (ml) 0 IV Infused (ml) 1424.7 1677 DOPamine/DEXTROSE 250 ml 16.4 @ Titrate IV CONT DENISE Rx# :[id number] NS W/ 20 KCl/L 1,000 ml @ 993 1029 100 mls/hr IV CONT DENISE Rx#:[id number] Propofol/Emulsion 100 ml 8.1 @ Per Protocol IV CONT DENISE Rx#:[id number] fentaNYL/NACL 100 ml @ 19.2 Per Protocol IV CONT DENISE Rx#:[id number] niCARdipine/NACL 200 ml @ 388 648 Titrate IV PRN PRN Rx#: [id number] Output: Urine (ml) 1775 2165 Catheter 1775 2165 CSF Drainage Amount 146 302 36 Right 146 302 36 Other Neuro Drain Output 157 0 (ml) Posterior 157 0 DAMIÁN Drain Output (ml) 0 5 Left Gonzalez Marrufo 0 5 Other: Number of Stools Catheter 0 Vital Signs Temp Pulse Resp BP Pulse Ox 37.4 C 85 16 126/54 H 92 07/09/18 08:00 07/09/18 11:00 07/09/18 11:00 07/09/18 11:00 07/09/18 11:00 Laboratory Results 07/09/18 04:30 07/09/18 04:30 ICD10 Worksheet Patient Problems: Problems Problem Status Onset Atrial fibrillation Acute Fall at home Acute Other specified nutritional deficiencies Acute Subdural hematoma Acute
--- NOTE | 2018-07-09 12:56 | HOSPPROG ---
Hospitalist Progress Note Assessment/Plan: 87 yo M w chf, bioprosthetic MV here w mechanical fall, SDH, epidural hematoma, intraparenchymal hemorrhage and increasing oxygen requirements AHRF: has been present whole admission cxr improved from yesterday, but still w pulm edema additional diuresis w bumex X 1 today SDH: s/p evacuation warfarin reversed follow inr tomorrow epidural hematoma: MRI stable encephalopathy makes evaluation of neuro exam difficult intraparenchymal hemorrhage: inr reversed AF: transient has WENDY closure device C2 nuchal ligamnet tear: hard collar dispo: icu Subjective: case d/w dr han, dr pichardo. 02 requirement decreased w diuresis. cxr w decreased, but still present, pulm edema Objective: Vital Signs Temp Pulse Resp BP Pulse Ox 37.4 C 85 16 126/54 H 92 07/09/18 08:00 07/09/18 11:00 07/09/18 11:00 07/09/18 11:00 07/09/18 11:00 Laboratory Results 07/09/18 04:30 07/09/18 04:30 07/08/18 07/09/18 07/10/18 05:59 05:59 05:59 Intake Total 1424.7 1677 Output Total 2078 2472 36 Balance -653.3 -795 -36 PT 16.0 SEC (12.0-15.0) H 07/09/18 04:30 INR 1.26 (0.83-1.16) H 07/09/18 04:30 - Physical Exam Constitutional: other (responds to voice) Eyes: PERRL, other (R orbital ecchymosis) Ears, Nose, Mouth, Throat: moist mucous membranes, hearing normal Cardiovascular: no murmur, rub, or gallop, JVD, tachycardia Respiratory: no respiratory distress, no rales or rhonchi Gastrointestinal: normoactive bowel sounds, soft, non-tender abdomen Genitourinary: zelaya in urethra Skin: warm, normal color, other (bruising) Musculoskeletal: full muscle strength, no muscle tenderness Neurologic: weakness Psychiatric: No interacting appropriately ICD10 Worksheet Patient Problems: Problems Problem Status Onset Atrial fibrillation Acute Fall at home Acute Other specified nutritional deficiencies Acute Subdural hematoma Acute
--- NOTE | 2018-07-09 14:19 | PDINTPN ---
Technical Specialist [employer] Progress Note Assessment/Plan: Assessment: S/P fall S/P SDH with evacuation 07/06. Sub-dural drain removed today. Intraparenchymal Hemorrhages: Stable moderate-sized right putamen, new small corpus collosum. Hypotension: Now hypertensive, on low-dose nicardipine to control BP. Hypoxemia: Likely due to CHF, atelectasis. Pneumonia from aspiration also possible, with climbing WBC, but has no fever. AF: Rate high today Anticoagulation: For Valve replacement and AF. Now reversed. Anemia: Up after transfusion. Nutrition: None since admit. Probably not ready for a swallow eval yet. Plan: Follow BP. Hold sedation. Bumex, repeat PRN. Increase activity as tolerated. Try b-aroldo for rate control and hypertension. He's unlikely to be able to take full nutrition in the next several days, will need to consider feeding tube or PEG. However, I think his overall prognosis is quite poor, he's very unlikely to return to independent living, so would discuss goals of therapy and prognosis with family before proceeding. May benefit from palliative care consult. 07/09/18 14:19 Subjective: Opens eyes weakly and responds to simple commands, but not answering questions. Objective: Vital Signs Temp Pulse Resp BP Pulse Ox 37.2 C 113 H 16 135/59 H 92 07/09/18 14:00 07/09/18 14:00 07/09/18 14:00 07/09/18 14:00 07/09/18 14:00 Laboratory Results 07/09/18 04:30 07/09/18 04:30 07/08/18 07/09/18 07/10/18 05:59 05:59 05:59 Intake Total 1424.7 1677 Output Total 2078 8252 36 Balance -653.3 -795 -36 PT 16.0 SEC (12.0-15.0) H 07/09/18 04:30 INR 1.26 (0.83-1.16) H 07/09/18 04:30 CXR: Improved vascular congestion and interstitial edema. Images reviewed by me. Laboratory Tests 07/09/18 04:30 INR 1.26 H Physical Exam - Physical Exam General Appearance: No alert EENT: other (ecchymosis right eye. S/P craniotomy) Neck: normal inspection Respiratory: lungs clear, normal breath sounds Cardiac/Chest: regular rate, rhythm, No edema Abdomen: normal bowel sounds, non-tender Skin: normal color, warm/dry Extremities: normal inspection Neuro/Psych: alert, normal mood/affect, oriented x 3 ICD10 Worksheet Patient Problems: Problems Problem Status Onset Atrial fibrillation Acute Fall at home Acute Other specified nutritional deficiencies Acute Subdural hematoma Acute
[2018-07-09] MEDS ORDERED: METOPROLOL TARTRATE 5 MG/5 ML INJ IVP PRN (14:24)
--- NOTE | 2018-07-09 16:27 | SOAPPROG ---
Downtime Inpatient MD Late Entry SOAP Note: I met with Manny's , daughter and son in law along with Dr. Irvin to discuss initiating enteral feedings and to revisit his resuscitation status. I reviewed his advance directives with them and believe it is appropriate to start enteric feedings. His prognosis for a full independent life after this devastating injury is poor, although, he could survive with significant neurologic deficits that could slowly improve with time and intensive rehabilitation. At this time they would like to continue full support and have not changed his resuscitation status. Ryan Parry MD, FACS
[2018-07-09] MEDS: ACETAMINOPHEN 650 MG SUPP PR PRN (20:42)
[2018-07-09] MEDS: LATANOPROST 0.005% 2.5 ML OPHT DROPS EACHEYE SCH (21:00)
[2018-07-09] MEDS ORDERED: POTASSIUM Cl (KCl) 50 ML IV ONE (23:27)
[2018-07-09] MEDS: ATORVASTATIN CALCIUM 20 MG TAB PO SCH (23:38)
[2018-07-10] MEDS: niCARdipine/NACL 200 ML IV PRN ×2 (01:12→10:21)
[2018-07-10 04:10] LABS: INR 1.22 (0.83-1.16); PROTIME(PATIENT) 15.6 SEC (12.0-15.0)
--- NOTE | 2018-07-10 07:49 | NEUSURGPN ---
Date of Surgery: 07/06/18 Post Op Day: 4 Assessment/Plan: 87 yo male who takes COumadin POD #4 sp emergent right crani for acute SDH after a fall Continued left hemiplegia and but now speaking some and following commands on Right side. 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, LLE triple flexion, toes upward going LLE Neuro Check Frequency: per routine Urinary Catheter in Place: Yes Urinary Catheter Indication: Accurate I & O Required - Physician Discussed Patient with : Alyson Neurosurgery Physical Exam - Vitals, I&O, Labs I and O 07/09/18 07/10/18 07/11/18 05:59 05:59 05:59 Intake Total 1677 2195 Output Total 2472 1961 275 Balance -795 234 -275 Weight 72.5 kg 66.2 kg Intake: Oral (ml) 0 0 IV Intake (ml) 719 IV Infused (ml) 1677 1476 NS W/ 20 KCl/L 1,000 ml @ 1029 703 100 mls/hr IV CONT DENISE Rx#:[id number] niCARdipine/NACL 200 ml @ 648 773 Titrate IV PRN PRN Rx#: [id number] Output: Urine (ml) 2165 1925 275 Catheter 2165 1925 275 CSF Drainage Amount 302 36 Right 302 36 Other Neuro Drain Output 0 (ml) Posterior 0 DAMIÁN Drain Output (ml) 5 Left Gonzalez Marrufo 5 Other: Number of Stools Catheter 0 0 Vital Signs Temp Pulse Resp BP Pulse Ox 36.4 C 95 18 132/58 H 92 07/10/18 06:00 07/10/18 06:00 07/10/18 06:00 07/10/18 06:00 07/10/18 06:00 Laboratory Results 07/09/18 04:30 07/10/18 03:50 ICD10 Worksheet Patient Problems: Problems Problem Status Onset Atrial fibrillation Acute Fall at home Acute Other specified nutritional deficiencies Acute Subdural hematoma Acute
--- NOTE | 2018-07-10 09:32 | HOSPPROG ---
Hospitalist Progress Note Assessment/Plan: 87 yo M w chf, bioprosthetic MV here w mechanical fall, SDH, epidural hematoma, intraparenchymal hemorrhage and increasing oxygen requirements VT: denies CP ekg w RBBB, twi anterior (interp by me). which is not new await trop echo pending AHRF: has been present whole admission cxr improved from yesterday, but still w pulm edema additional diuresis w bumex X 1 today 07/10- additional dose bumex today dysphagia: dobhoff placed SDH: s/p evacuation warfarin reversed follow inr tomorrow epidural hematoma: MRI stable encephalopathy makes evaluation of neuro exam difficult intraparenchymal hemorrhage: inr reversed AF: transient has WENDY closure device C2 nuchal ligamnet tear: hard collar dispo: icu Subjective: 2 episodes of VT this AM (tele interp by me). abd xr w dobhoff, b/ l airpsace disease (interp by me). case dw dr stone. zain CP Objective: Vital Signs Temp Pulse Resp BP Pulse Ox 36.4 C 98 16 130/51 H 94 07/10/18 06:00 07/10/18 09:00 07/10/18 09:00 07/10/18 09:00 07/10/18 09:00 Laboratory Results 07/09/18 04:30 07/10/18 03:50 07/09/18 07/10/18 07/11/18 05:59 05:59 05:59 Intake Total 1677 2195 Output Total 2472 1961 410 Balance -795 234 -410 PT 15.6 SEC (12.0-15.0) H 07/10/18 03:50 INR 1.22 (0.83-1.16) H 07/10/18 03:50 - Physical Exam Constitutional: no apparent distress, not in pain Eyes: PERRL, anicteric sclera Ears, Nose, Mouth, Throat: moist mucous membranes, hearing normal Cardiovascular: regular rate and rhythym, no murmur, rub, or gallop, No systolic murmur Respiratory: no respiratory distress, no rales or rhonchi Gastrointestinal: normoactive bowel sounds, soft, non-tender abdomen Genitourinary: no bladder fullness, No zelaya in urethra Skin: warm Musculoskeletal: full muscle strength, no muscle tenderness Neurologic: weakness, No AAOx3, No sensation intact bilaterally Psychiatric: No interacting appropriately, No not anxious ICD10 Worksheet Patient Problems: Problems Problem Status Onset Atrial fibrillation Acute Fall at home Acute Other specified nutritional deficiencies Acute Subdural hematoma Acute
[2018-07-10] MEDS ORDERED: BUMETANIDE 1 MG/4 ML VIAL IVP ONE (09:36)
[2018-07-10] MEDS: TAMSULOSIN HCL 0.4 MG CAP PO SCH (10:24)
[2018-07-10] MEDS: FAMOTIDINE 20 MG/NACL 50 ML IV SCH (10:24)
[2018-07-10] MEDS: SENNOSIDES 17.6 MG/10 ML UDL - IF LIQUID ORDERED TUBE SCH ×2 (10:24→21:01)
[2018-07-10] MEDS: FERROUS SULFATE 325 MG TAB PO SCH (10:24)
--- NOTE | 2018-07-10 10:37 | CPEKG ---
Test Reason : OPEN Blood Pressure : / mmHG Vent. Rate : 094 BPM Atrial Rate : 112 BPM P-R Int : 296 ms QRS Dur : 162 ms QT Int : 422 ms P-R-T Axes : 000 082 -68 degrees QTc Int : 528 ms Atrial fibrillation Right bundle branch block ST depr, consider ischemia, anterolateral lds Confirmed by Riley Reich ([id number]) on 07/10/2018 10:36:47 AM Referred By: Confirmed By:Riley Reich
[2018-07-10] MEDS: levETIRAcetam 750 MG in NS 100 ML IV SCH ×2 (10:42→23:00)
--- NOTE | 2018-07-10 14:44 | TRAUMAPN ---
Trauma Progress Note Subjective: vss,af lungs clear heart nml s1s2 no m abd soft dobhoff in, on tube feedings neuro- follow s commands on r, nothing on left assess: brain bleed is major issues, otherwise physiology reasonable with occ v tach, elevated troponin plan: family continues to discuss [facility] care plan and code status. Objective: Vital Signs Temp Pulse Resp BP Pulse Ox 36.4 C 98 12 113/67 92 07/10/18 06:00 07/10/18 14:00 07/10/18 14:00 07/10/18 14:00 07/10/18 14:00 Laboratory Results 07/09/18 04:30 07/10/18 03:50 07/09/18 07/10/18 07/11/18 05:59 05:59 05:59 Intake Total 1677 2195 Output Total 2472 1961 785 Balance -795 234 -785 PT 15.6 SEC (12.0-15.0) H 07/10/18 03:50 INR 1.22 (0.83-1.16) H 07/10/18 03:50 - C-Spine Clearance Cervical Spine Cleared: No
--- NOTE | 2018-07-10 16:35 | PDINTPN ---
Panel Builder Progress Note Assessment/Plan: Assessment: 87-year-old status post mechanical fall yesterday, struck his head. History of mitral valve replacement, chronic atrial fibrillation and Coumadin anticoagulation. This morning when he awoke had left-sided weakness. Was brought to the emergency department. Found to have a large right-sided subdural hematoma with herniation. He was taken to the operating room and craniotomy performed with evacuation of the subdural. He was returned to the intensive care unit on the ventilator, subsequently extubated without problems. He has had labile blood pressure, with hypotension postoperatively. Now hypertensive S/P fall with SDH. S/p evacuation 07/06. Sub-dural drains now removed. Intraparenchymal Hemorrhages: Stable moderate-sized right putamen, with subsequent small corpus collosum area of hemorrhage. Neurologically he is doing well, is responsive but perhaps confused. Decreased left upper extremity strength more so than left lower extremity. Right side fine. Hypotension: Now hypertensive, on low-dose nicardipine to control BP. Can start oral medications per NG. Hypoxemia: Likely due to CHF, atelectasis. Pneumonia from aspiration also possible, with climbing WBC, but has no fever. AF: Chronic. Has also had several runs of VT, quite short. Troponins slightly up at 1.5. EKG nonspecific. Metabolic: Hypernatremic. Will change IV fluids to half normal saline with potassium. Anticoagulation: For Valve replacement and AF. On hold. Anemia: Up after transfusion. Hematocrit stable at 28. Nutrition: Feeding tube in place. To start tube feedings today. Advance directives. Discussed with the patient's and family today. They do not want cardiac compressions if needed. Plan: Continue care in the intensive care unit. Continue nicardipine drip. Wean this as NG medications become effective for controlling blood pressure. Continue oxygen. Follow chest x-ray intermittently. Follow cardiac rhythm. Repeat echo today: Review report when available. Continue SCDs for DVT prophylaxis. Unable to anticoagulate at this time. Stop normal saline, continue with half normal. Follow laboratory. Limited resuscitation status to be ordered. Began to look at custodial facility placement. I doubt he will need LTAC but difficult to know at the present time. 40 min of critical care time spent directly with the patient. Discussed issues with the patient's family, hospitalist, nursing, and the ICU multi disciplinary team. Subjective: Responsive, squeezes hands. Tries to talk but difficult to understand. Indicates he is doing okay. Objective: Vital Signs Temp Pulse Resp BP Pulse Ox 36.4 C 87 12 120/68 92 07/10/18 06:00 07/10/18 16:00 07/10/18 16:00 07/10/18 16:00 07/10/18 16:00 Laboratory Results 07/09/18 04:30 07/10/18 03:50 07/09/18 07/10/18 07/11/18 05:59 05:59 05:59 Intake Total 1677 2195 Output Total 2472 1961 1110 Balance -795 234 -1110 PT 15.6 SEC (12.0-15.0) H 07/10/18 03:50 INR 1.22 (0.83-1.16) H 07/10/18 03:50 Laboratory Tests 07/10/18 07/10/18 03:50 09:10 Magnesium 2.6 H Troponin I 1.510 H EKG: Atrial fibrillation. Cannot rule out anterior lateral ischemia but findings may be nonspecific ICD10 Worksheet Patient Problems: Problems Problem Status Onset Atrial fibrillation Acute Fall at home Acute Other specified nutritional deficiencies Acute Subdural hematoma Acute
[2018-07-10] MEDS ORDERED: amLODIPine BESYLATE 5 MG TAB PO SCH (17:00)
[2018-07-10] MEDS: amLODIPine BESYLATE 5 MG TAB TUBE SCH (17:16)
[2018-07-10] MEDS: POTASSIUM Cl (KCl) 20 MEQ in 1/2 NS 1,000 ML IV SCH (17:16)
--- NOTE | 2018-07-10 17:48 | ECHO ---
[email or web address] [address] Main: [phone] Fax: Transthoracic Echocardiogram Name: FREEMAN ALICEA MR#: [id number] Study Date: 07/10/2018 Study Time: 10:18 AM Date of : 1930 Age: 87 year(s) Height: 170.2 cm (67 in.) Weight: 65.77 kg (145 lb.) BSA: 1.76 m2 Gender: Male Examination: Echo Indication: Ventricular tachycardia, critically ill Image Quality: Contrast: Requested by: Barrington Dorado BP: 118 mmHg/49 mmHg Heart Rate: Rhythm: Indication: Ventricular tachycardia, critically ill Procedure Staff Passenger Elevator Operator: Rylie Guan [facility] Reading Physician: Jovon Bowden MD Requesting Provider: Conclusions: Normal size left ventricle. Mild concentric LV hypertrophy. Normal global systolic LV function. The ejection fraction is estimated to be 65 %. Moderately dilated right ventricle. Mildly reduced RV function. The left atrium is severely dilated. The right atrium is severely dilated. A bioprothetic mitral valve is in place. MV mean PG is 4mmHG.. Moderate aortic cusp calcification is present. Mild calcific aortic valve stenosis. The tricuspid valve leaflets do not seem to coapt due to RV dilatation. Severe tricuspid regurgitation is present. RSVP is approximately 40mmHG.. The IVC is moderately dilated. RAP 20 mmHg.. No pericardial effusion. Measurements: Chambers Valvular Assessment AV/MV Valvular Assessment TV/PV Normal Normal Normal Name Value Range Name Value Range Name Value Range Ao Alyson (MM): 3.9 cm (2.2 cm-3.7 AV Vmax: 1.94 m/s (1 m/s-1.7 TR Vmax: 2.50 mm/s ( - ) cm) m/s) TR PGmax: 25 mmHg ( - ) IVSd (2D): 1.2 cm (0.6 cm-1.1 AV meanP mmHg ( - ) syst. PAP: 45 mmHg ( - ) cm) MV E Vmax: 1.49 m/s ( - ) LVDd (2D): 4.2 cm (4.2 cm-5.9 MV A Vmax: 0.40 m/s ( - ) cm) MV E/A: 3.72 ( - ) LVDs (2D): 3.0 cm (2.1 cm-4 MV meanP mmHg ( - ) cm) Patient: FREEMAN ALICEA Study Date: 07/10/2018 Page 1 of 2 10:18 AM LVPWd (2D): 0.8 cm (0.6 cm-1 cm) LVOTd 2.1 cm 2.1 cm mm LVEF (MOD4): 64 % (>=55 %) EF Range: 65 % Continued Measurements: Chambers Valvular Assessment AV/MV Valvular Assessment TV/PV Name Value Name Value Name Value LADs: 5.3 cm MV E' Septal: 0.05 m/s CVP (est.): 20 mmHg LADs Lon.1 cm MV E/E' Septal: 27.80 LA Area: 32.4 cm2 MV E/E' Lateral: 17.20 MV VTI: 38.70 cm Additional Vessels Name Value Ao Ascendin.9 cm Inferior Vena Cava: 3.6 cm Findings: Left Ventricle: Normal size left ventricle. Mild concentric LV hypertrophy. Normal global systolic LV function. The ejection fraction is estimated to be 65 %. No regional wall motion abnormality. Unable to assess diastolic dysfunction. Right Ventricle: Moderately dilated right ventricle. Mildly reduced RV function. Left Atrium: The left atrium is severely dilated. Right Atrium: The right atrium is severely dilated. 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 Mitral Valve: Mild mitral valve regurgitation is present. A bioprothetic mitral valve is in place. MV mean PG is 4mmHG.. Aortic Valve: Moderate aortic cusp calcification is present. Mild calcific aortic valve stenosis. Tricuspid Valve: The tricuspid valve leaflets do not seem to coapt due to RV dilatation. Severe tricuspid regurgitation is present. RSVP is approximately 40mmHG.. Pulmonic Valve: The pulmonic valve is normal in appearance and function. Trivial to mild pulmonic valve regurgitation. Aorta: The aorta is normal. IVC: The IVC is moderately dilated. RAP 20 mmHg.. Pericardium: No pericardial effusion. Exam Comments: (No Signature Object) Patient: FREEMAN ALICEA Study Date: 07/10/2018 Page 2 of 2 10:18 AM [id number]
--- NOTE | 2018-07-10 17:49 | ASMTCMCOM ---
CM Note CM Note Notes: Patient following commands, L sided weakness, family does not want CPR, feeding tube started. Will talk to family regarding Rehab Tuesday. Date Signed: 07/10/2018 05:48 PM Electronically Signed By:Heather Ramos LCSW
[2018-07-10] MEDS: ATORVASTATIN CALCIUM 20 MG TAB PO SCH (20:55)
[2018-07-10] MEDS: BUMETANIDE 1 MG TAB PO SCH (20:55)
[2018-07-10] MEDS: POTASSIUM Cl (KCl) 50 ML IV SCH ×3 (20:56→23:02)
[2018-07-10] MEDS: ACETAMINOPHEN 650 MG/20.3 ML UDCUP TUBE PRN (21:41)
[2018-07-10] MEDS ORDERED: hydrALAZINE 10 MG TAB PO SCH (22:00)
[2018-07-10] MEDS ORDERED: niCARdipine 20 MG CAP PO SCH (22:00)
[2018-07-10] MEDS: LATANOPROST 0.005% 2.5 ML OPHT DROPS EACHEYE SCH (22:02)
[2018-07-11 04:41] LABS: PLATELET COUNT 133 10^3/uL (150-400)
[2018-07-11] MEDS: ACETAMINOPHEN 650 MG/20.3 ML UDCUP TUBE PRN ×2 (05:57→11:06)
[2018-07-11] MEDS: POTASSIUM Cl (KCl) 20 MEQ in 1/2 NS 1,000 ML IV SCH (06:34)
--- NOTE | 2018-07-11 07:32 | TRAUMAPN ---
Trauma Progress Note Assessment/Plan: 87 yo s/p fall while anticoagulated SDH - evacuated cervical subdural C2-6 stable Making more progress than expected. Has a strong will. May be a candidate for inpatient rehab which may help him gain more independence due to the intensity. If continues to improve, I do think he would benefit from continued PT, OT and ST Will likely move to floor soon S: Per family, had an excellent discussion last evening regarding finances etc Objective: Vital Signs Temp Pulse Resp BP Pulse Ox 37.9 C 99 23 H 135/82 H 96 07/11/18 05:58 07/11/18 06:00 07/11/18 06:00 07/11/18 06:00 07/11/18 06:00 Laboratory Results 07/11/18 04:30 07/11/18 04:30 07/10/18 07/11/18 07/12/18 05:59 05:59 05:59 Intake Total 2195 2237 Output Total 1961 2285 Balance 234 -48 PT 15.6 SEC (12.0-15.0) H 07/10/18 03:50 INR 1.22 (0.83-1.16) H 07/10/18 03:50 - C-Spine Clearance Cervical Spine Cleared: No Physical Exam - Physical Exam General Appearance: WD/WN, no apparent distress EENT: other (dht in place) Respiratory: chest non-tender, lungs clear, normal breath sounds Cardiac/Chest: regular rate, rhythm Extremities: other (L hemiparesis. Does occasionally move LLE spontaneously but not to command)
[2018-07-11] MEDS: FERROUS SULFATE 325 MG TAB PO SCH (09:33)
[2018-07-11] MEDS: BUMETANIDE 1 MG TAB PO SCH ×2 (09:33→20:45)
[2018-07-11] MEDS: SENNOSIDES 17.6 MG/10 ML UDL - IF LIQUID ORDERED TUBE SCH ×2 (09:34→20:45)
[2018-07-11] MEDS: TAMSULOSIN HCL 0.4 MG CAP PO SCH (09:34)
[2018-07-11] MEDS: FAMOTIDINE 20 MG/NACL 50 ML IV SCH (09:34)
[2018-07-11] MEDS: amLODIPine BESYLATE 5 MG TAB TUBE SCH (09:34)
[2018-07-11] MEDS: levETIRAcetam 750 MG in NS 100 ML IV SCH ×2 (09:34→20:45)
--- NOTE | 2018-07-11 10:14 | NEUSURGPN ---
Date of Surgery: 07/06/18 Post Op Day: 5 Assessment/Plan: 87 yo male who takes COumadin POD #5 sp emergent right crani for acute SDH after a fall Continued left hemiplegia and but now speaking some and following commands on Right side. Plan: -Maintain SBP 100-140 -Q2 hour neuro checks -Patient right sided strength improving, some improvement with clarity of speech today. -Maintenance fluids 75cc/hr PT/OT/SET OFF BLOCKER as able, still quite lethargic -Discussed patient with Dr Shields who will be by today to see as well. 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, LLE triple flexion, toes upward going LLE Neuro Check Frequency: per routine Urinary Catheter in Place: Yes Urinary Catheter Indication: Accurate I & O Required - Physician Discussed Patient with Dr.: Shields Patient Seen by Dr.: Shields Neurosurgery Physical Exam - Vitals, I&O, Labs I and O 07/10/18 07/11/18 07/12/18 05:59 05:59 05:59 Intake Total 2195 2237 Output Total 196 2285 Balance 234 -48 Weight 66.2 kg Intake: Oral (ml) 0 0 IV Intake (ml) 719 1163 IV Infused (ml) 1476 471 NS W/ 20 KCl/L 1,000 ml @ 703 334 100 mls/hr IV CONT DENISE Rx#:[id number] niCARdipine/NACL 200 ml @ 773 137 Titrate IV PRN PRN Rx#: [id number] Tube Feeding (ml) 453 Tube Flush (ml) 150 Output: Urine (ml) 1925 2285 Catheter 1925 2285 NG Tube Output (ml) 0 Right Naris 0 CSF Drainage Amount 36 Right 36 Other: Number of Stools Catheter 0 0 Vital Signs Temp Pulse Resp BP Pulse Ox 37.9 C 99 23 H 135/82 H 96 07/11/18 05:58 07/11/18 06:00 07/11/18 06:00 07/11/18 06:00 07/11/18 06:00 Laboratory Results 07/11/18 04:30 07/11/18 04:30 ICD10 Worksheet Patient Problems: Problems Problem Status Onset Atrial fibrillation Acute Fall at home Acute Other specified nutritional deficiencies Acute Subdural hematoma Acute
[2018-07-11] MEDS ORDERED: POTASSIUM Cl (KCl) 20 MEQ, SODIUM CL 14.6% 38.5 MEQ in WATER FOR INJECTION,STERILE 1,00... IV SCH (10:30)
[2018-07-11] MEDS ORDERED: [UNRECOGNIZED DRUG - OTHER] IV SCH (11:00)
[2018-07-11] MEDS ORDERED: POTASSIUM CL IV SCH (11:00)
[2018-07-11] MEDS ORDERED: SODIUM CL IV SCH (11:00)
[2018-07-11] MEDS: POTASSIUM Cl (KCl) 20 MEQ in D5W 1,000 ML IV SCH (12:19)
--- NOTE | 2018-07-11 13:33 | PDINTPN ---
[facility] Machine Operator Progress Note Assessment/Plan: Assessment: 87-year-old status post mechanical fall yesterday, struck his head. History of mitral valve replacement, chronic atrial fibrillation and Coumadin anticoagulation. This morning when he awoke had left-sided weakness. Was brought to the emergency department. Found to have a large right-sided subdural hematoma with herniation. He was taken to the operating room and craniotomy performed with evacuation of the subdural. He was returned to the intensive care unit on the ventilator, subsequently extubated without problems. He has had labile blood pressure, with hypotension postoperatively. Now hypertensive S/P fall with SDH. S/p evacuation 07/06. Sub-dural drains now removed. Intraparenchymal Hemorrhages: Stable moderate-sized right putamen, with subsequent small corpus collosum area of hemorrhage. Neurologically he is doing well, is more alert and quite responsive. Perhaps confused at times. Left-sided deficits persist. Right side appears fine. Requiring 2 person assist for transfers. Hypotension: Now hypertensive. Off nicardipine drip with oral antihypertensive per NG tube Hypoxemia: Mild, with some increased congestion today. Appears to be handling secretions acceptably, good cough. Will repeat x-ray in the morning.. AF: Chronic. No further runs of short VT. Troponins 07/10 slightly up at 1.5. EKG nonspecific. Echo yesterday unchanged. Metabolic: Hypernatremic: 154. Will change IV fluids D5W with potassium. Urine output not excessive. No evidence for DI at this time. Anticoagulation: Was on Coumadin at the time of admission for valve replacement and AF. On hold. Anemia: Up after transfusion. Hematocrit stable at 28. Advanced directives. Discussed several days ago with family. They not want cardiac compressions if needed. Plan: Continue care in the intensive care unit. Continue oral antihypertensives. Continue oxygen as needed. Follow chest x-ray in the a.m.. Follow cardiac rhythm. Continue SCDs for DVT prophylaxis. Unable to anticoagulate at this time. Change IV fluids to D5W with potassium. Follow laboratory. Continue to look at halfway facility placement verses LTAC. 40 min of critical care time spent directly with the patient. Discussed issues with the patient's family, hospitalist, nursing, and the ICU multi disciplinary team. Subjective: Says he is doing okay. Asked me how I am doing. Denies shortness of breath or pain. Not moving left side spontaneously Objective: Vital Signs Temp Pulse Resp BP Pulse Ox 36.8 C 102 H 22 H 131/73 H 93 07/11/18 12:00 07/11/18 12:00 07/11/18 12:00 07/11/18 12:00 07/11/18 12:00 Laboratory Results 07/11/18 04:30 07/11/18 04:30 07/10/18 07/11/18 07/12/18 05:59 05:59 05:59 Intake Total 2195 2237 Output Total 1961 2285 Balance 234 -48 PT 15.6 SEC (12.0-15.0) H 07/10/18 03:50 INR 1.22 (0.83-1.16) H 07/10/18 03:50 Laboratory Tests 07/11/18 04:30 Calcium 8.4 L Physical Exam - Physical Exam General Appearance: alert, mild distress, thin EENT: PERRL/EOMI (With periorbital ecchymoses), other (Nasal cannula in place at 2 L. Feeding tube in place) Neck: other (Hard collar) Respiratory: lungs clear (Anteriorly), decreased breath sounds (At the bases), rhonchi (Some rhonchi with coughing efforts centrally), No wheezing Cardiac/Chest: irregularly irregular (Atrial fibrillation) Abdomen: normal bowel sounds, non-tender, soft Male Genitalia: other (Tate catheter in place, good urine output) Skin: warm/dry, pallor Extremities: No pedal edema Neuro/Psych: cognition abnormalities (Significantly improved. Appears to be oriented, appropriate most of the time. Able to make complex decisions and has excellent memory according to his family), No no motor/sensory deficits (But been ski present on the left) ICD10 Worksheet Patient Problems: Problems Problem Status Onset Subdural hematoma Acute Fall at home Acute Atrial fibrillation Acute Other specified nutritional deficiencies Acute
--- NOTE | 2018-07-11 15:08 | HOSPPROG ---
Hospitalist Progress Note Assessment/Plan: 87 yo M w chf, bioprosthetic MV here w mechanical fall, SDH, epidural hematoma, intraparenchymal hemorrhage and increasing oxygen requirements VT: denies CP ekg w RBBB, twi anterior (interp by me). which is not new trop peaked at 1.5 and no WMA on echo keep K, Mg in range hypernatremia: likely 2/2 diuresis free water increased on tube feeds on maintenance d5 W AHRF: has been present whole admission cxr improved from yesterday, but still w pulm edema additional diuresis w bumex X 1 today 07/10- additional dose bumex today 07/11- po bumex dysphagia: dobhoff placed SDH: s/p evacuation warfarin reversed follow inr tomorrow epidural hematoma: MRI stable encephalopathy makes evaluation of neuro exam difficult intraparenchymal hemorrhage: inr reversed AF: transient has WENDY closure device C2 nuchal ligamnet tear: hard collar dispo: icu Subjective: case d/w dr stone. more alert today Objective: Vital Signs Temp Pulse Resp BP Pulse Ox 36.8 C 102 H 22 H 131/73 H 93 07/11/18 12:00 07/11/18 12:00 07/11/18 12:00 07/11/18 12:00 07/11/18 12:00 Laboratory Results 07/11/18 04:30 07/11/18 04:30 07/10/18 07/11/18 07/12/18 05:59 05:59 05:59 Intake Total 2195 2237 Output Total 1961 2285 Balance 234 -48 PT 15.6 SEC (12.0-15.0) H 07/10/18 03:50 INR 1.22 (0.83-1.16) H 07/10/18 03:50 - Physical Exam Constitutional: no apparent distress, appears nourished Eyes: PERRL, anicteric sclera Ears, Nose, Mouth, Throat: moist mucous membranes Cardiovascular: no murmur, rub, or gallop, irregularly irregular Respiratory: no respiratory distress, no rales or rhonchi Gastrointestinal: normoactive bowel sounds, soft, non-tender abdomen Genitourinary: zelaya in urethra Skin: warm, normal color Musculoskeletal: No full muscle strength Neurologic: other (L sided weakness w L facial droop), No AAOx3 ICD10 Worksheet Patient Problems: Problems Problem Status Onset Atrial fibrillation Acute Fall at home Acute Other specified nutritional deficiencies Acute Subdural hematoma Acute
--- NOTE | 2018-07-11 15:56 | ASMTCMCOM ---
CM Note CM Note Notes: Spoke to MD's regarding LTAC vs In-pt Rehab. Not LTAC appropriate. Therapies all recommending Acute Rehab. Order in for Acute to eval. Patient has [facility], [facility] will have to authorize. Patient doing so much better. Met with daughter, Makenna to explain rehab options. Date Signed: 07/11/2018 03:55 PM Electronically Signed By:Heather Ramos LCSW
[2018-07-11] MEDS: ATORVASTATIN CALCIUM 20 MG TAB PO SCH (20:45)
[2018-07-11] MEDS: LATANOPROST 0.005% 2.5 ML OPHT DROPS EACHEYE SCH (20:46)
[2018-07-12] MEDS: POTASSIUM Cl (KCl) 20 MEQ in D5W 1,000 ML IV SCH ×2 (00:04→13:28)
[2018-07-12] MEDS: niCARdipine/NACL 200 ML IV PRN (04:49)
[2018-07-12 05:08] LABS: PLATELET COUNT 145 10^3/uL (150-400)
[2018-07-12 05:19] LABS: INR 1.28 (0.83-1.16); PROTIME(PATIENT) 16.2 SEC (12.0-15.0)
--- NOTE | 2018-07-12 07:25 | NEUSURGPN ---
Date of Surgery: 07/06/18 Post Op Day: 6 Assessment/Plan: Assessment: 87 yo male who takes Coumadin POD #6 sp emergent right crani for acute SDH after a fall Plan: -pt with continued left hemiplegia and but now speaking some and following commands on right side with cancer program director and wiggles toes -maintain SBP 100-140 -Q2 hour neuro checks -patient's right sided strength improving, some improvement with clarity of speech per reports -Maintenance fluids 75cc/hr -continue with PT/OT/ELECTRICAL ENGINEERING DRAFTING OFFICER as able -Discussed patient with Dr Shields -call NS with any changes or issues -case management seeing patient as well -Dr Shields would like another CT scan of head today -ok to remove dressing -Hangar to fit a better collar-[place] Subjective: Awake and alert. NAD. No new events per RN. Objective: opens eyes spontaneously minimal speech but appropriate and oriented to place follows commands PERRLA Moves right side spontaneously, follows commands with cancer program director and wiggles toes Hemiplegic on left, LLE triple flexion, toes upward going LLE Neuro Check Frequency: per routine Urinary Catheter in Place: Yes Urinary Catheter Indication: Accurate I & O Required Catheter Insertion Date: 07/10/18 - Physician Discussed Patient with : Alyson Neurosurgery Physical Exam - Vitals, I&O, Labs I and O 07/11/18 07/12/18 07/13/18 05:59 05:59 05:59 Intake Total 2237 4775 Output Total 2285 4100 Balance -48 675 Intake: Oral (ml) 0 IV Intake (ml) 1163 1082 IV Infused (ml) 471 1198 NS W/ 20 KCl/L 1,000 ml @ 334 100 mls/hr IV CONT DENISE Rx#:[id number] POTASSIUM Cl (KCl) 20 meq 1038 In D5w 1,000 ml @ 80 mls /hr IV CONT DENISE Rx#: [id number] niCARdipine/NACL 200 ml @ 137 160 Titrate IV PRN PRN Rx#: [id number] Tube Feeding (ml) 453 1895 Tube Flush (ml) 150 600 Output: Urine (ml) 2285 4100 Catheter 2285 4100 NG Tube Output (ml) 0 Right Naris 0 Other: Number of Stools Catheter 0 1 Vital Signs Temp Pulse Resp BP Pulse Ox 36.6 C 92 22 H 129/66 H 96 09/18/18 20:00 07/12/18 06:00 07/12/18 06:00 07/12/18 06:00 07/12/18 06:00 Laboratory Results 07/12/18 05:00 07/12/18 05:00 ICD10 Worksheet Patient Problems: Problems Problem Status Onset Atrial fibrillation Acute Fall at home Acute Other specified nutritional deficiencies Acute Subdural hematoma Acute
--- NOTE | 2018-07-12 09:11 | TRAUMAPN ---
Trauma Progress Note - Problem/Surgery Performed (1) Fall at home Assessment/Plan: mechanism of injury Qualifiers: Encounter type: initial encounter Qualified Code(s): W19.XXXA - Unspecified fall, initial encounter; Y92.009 - Unspecified place in unspecified non-institutional (private) residence as the place of occurrence of the external cause; Y92.009 - Unspecified place in unspecified non-institutional ( private) residence as the place of occurrence of the external cause (2) Atrial fibrillation Assessment/Plan: currently anticoagulation due to SDH/crani rate moderately well controlled Qualifiers: Atrial fibrillation type: paroxysmal Qualified Code(s): I48.0 - Paroxysmal atrial fibrillation (3) Other specified nutritional deficiencies Assessment/Plan: tolerating tube feeding/consider PEG (4) Subdural hematoma Assessment/Plan: s/p Crani/evacuation with severe neuro deficit pre/post op anticipate slow recovery cont OT/PT/ST inpatient rehab consult Assessment/Plan: s/p fall with SDH/crani for evacuation clinical neurologic deficit is considerable and will require marine oil terminal superintendent neuro- rehab he has a mounting nutritional deficit that will benefit from enteral feedings will repeat CXR and discuss enteral feedings with family consider PICC and early right subclavian removal remove or change ER IV right ACF Subjective: opens eyes to command following commands staff reports intermitant verbalization Objective: Vital Signs Temp Pulse Resp BP Pulse Ox 37.6 C 110 H 23 H 132/74 H 96 07/12/18 08:00 07/12/18 08:00 07/12/18 08:00 07/12/18 08:00 07/12/18 08:00 Laboratory Results 07/12/18 05:00 07/12/18 05:00 07/11/18 07/12/18 07/13/18 05:59 05:59 05:59 Intake Total 2237 4775 Output Total 2285 4100 Balance -48 675 PT 16.2 SEC (12.0-15.0) H 07/12/18 05:00 INR 1.28 (0.83-1.16) H 07/12/18 05:00 - C-Spine Clearance Cervical Spine Cleared: No Physical Exam - Physical Exam General Appearance: thin, other (elderly male somnolent/arousable) EENT: other (periorbital ecchymosis R/decreased swelling) Neck: other (hard collar in place) Respiratory: lungs clear, decreased breath sounds (right base) Cardiac/Chest: irregularly irregular, other (LLSB grade III diastolic murmer/ split S1-2) Peripheral Pulses: 2+: dorsalis-pedis (R), dorsalis-pedis (L) Abdomen: non-tender, soft Male Genitalia: other (Tate cath) Rectal: deferred Skin: warm/dry Extremities: other (laceration LUE/dressing removed, healing without erythema/ bilateral SCD heel pillows-posterior) Neuro/Psych: motor weakness (LUE, moving RUE/RLE to command), depressed affect Time Spent w/Patient (minutes): 20
[2018-07-12] MEDS: FAMOTIDINE 20 MG/NACL 50 ML IV SCH (09:34)
[2018-07-12] MEDS: amLODIPine BESYLATE 5 MG TAB TUBE SCH ×2 (09:34→22:01)
[2018-07-12] MEDS: levETIRAcetam 750 MG in NS 100 ML IV SCH (09:34)
[2018-07-12] MEDS: BUMETANIDE 1 MG TAB PO SCH (09:35)
[2018-07-12] MEDS: FERROUS SULFATE 325 MG TAB PO SCH (09:35)
[2018-07-12] MEDS: TAMSULOSIN HCL 0.4 MG CAP PO SCH (09:35)
[2018-07-12] MEDS: SENNOSIDES 17.6 MG/10 ML UDL - IF LIQUID ORDERED TUBE SCH ×2 (09:35→22:00)
[2018-07-12] MEDS ORDERED: POLYETHYLENE GLYCOL 3350 17 GM PKT TUBE PRN (11:30)
[2018-07-12] MEDS ORDERED: LACTULOSE 20 GM/30 ML UDCUP TUBE PRN (11:30)
[2018-07-12] MEDS: ACETAMINOPHEN 650 MG/20.3 ML UDCUP TUBE PRN ×3 (11:52→17:30)
[2018-07-12] MEDS: POTASSIUM CL 10 MEQ TAB PO ONE ×2 (11:53→12:08)
--- NOTE | 2018-07-12 12:27 | HOSPPROG ---
Hospitalist Progress Note Assessment/Plan: 87 yo M w chf, bioprosthetic MV here w mechanical fall, SDH, epidural hematoma, intraparenchymal hemorrhage and increasing oxygen requirements VT: denies CP ekg w RBBB, twi anterior (interp by me). which is not new trop peaked at 1.5 and no WMA on echo keep K, Mg in range hypernatremia: likely 2/2 diuresis free water increased on tube feeds on maintenance d5 W strict I's and O's, leave Tate in AHRF: has been present whole admission cxr improved from yesterday, but still w pulm edema additional diuresis w bumex X 1 today will hold additional diuretics today dysphagia: dobhoff placed. Had to be replaced today. XR reviewed. OK to restart tube feeds SDH: s/p evacuation warfarin reversed Left sided Hemiparesis epidural hematoma: MRI stable encephalopathy makes evaluation of neuro exam difficult intraparenchymal hemorrhage: inr reversed AF: transient has WENDY closure device C2 nuchal ligamnet tear: hard collar dispo: icu Plan: SBP goal 100-140 Tube Feeds Diuretics as needed PT/OT/TEST EXAMINER Subjective: no overnight events. no cp or sob. no able to move left side of body Objective: Vital Signs Temp Pulse Resp BP Pulse Ox 37.3 C 108 H 20 119/62 98 07/12/18 11:57 07/12/18 11:57 07/12/18 11:57 07/12/18 11:57 07/12/18 11:57 Laboratory Results 07/12/18 05:00 07/12/18 05:00 07/11/18 07/12/18 07/13/18 05:59 05:59 05:59 Intake Total 2237 4775 Output Total 2285 4100 850 Balance -48 675 -850 PT 16.2 SEC (12.0-15.0) H 07/12/18 05:00 INR 1.28 (0.83-1.16) H 07/12/18 05:00 - Physical Exam Constitutional: chronically ill appearing Eyes: PERRL Ears, Nose, Mouth, Throat: moist mucous membranes Cardiovascular: regular rate and rhythym, No edema Respiratory: no respiratory distress, no rales or rhonchi, reduced air movement Gastrointestinal: normoactive bowel sounds, soft, non-tender abdomen Skin: warm Musculoskeletal: generalized weakness Neurologic: other (left sided hemiplegia) Psychiatric: interacting appropriately Lymph, Heme, Immunologic: No petechiae ICD10 Worksheet Patient Problems: Problems Problem Status Onset Atrial fibrillation Acute Fall at home Acute Other specified nutritional deficiencies Acute Subdural hematoma Acute
[2018-07-12] MEDS: POTASSIUM Cl (KCl) 50 ML IV SCH ×4 (13:09→15:17)
--- NOTE | 2018-07-12 17:04 | PDINTPN ---
Investigation Manager Progress Note Assessment/Plan: Assessment: 87-year-old status post mechanical fall yesterday, struck his head. History of mitral valve replacement, chronic atrial fibrillation and Coumadin anticoagulation. This morning when he awoke had left-sided weakness. Was brought to the emergency department. Found to have a large right-sided subdural hematoma with herniation. He was taken to the operating room and craniotomy performed with evacuation of the subdural. He was returned to the intensive care unit on the ventilator, subsequently extubated without problems. He has had labile blood pressure, with hypotension postoperatively. Now hypertensive S/P fall with SDH. S/p evacuation 07/06. Sub-dural drains now removed. Intraparenchymal Hemorrhages: Stable moderate-sized right putamen, with subsequent small corpus collosum area of hemorrhage. Neurologically he is doing well, is more alert and quite responsive. Perhaps confused at times. Dense Left-sided deficits persist. Right side appears fine. Requiring 2 person assist for transfers. Hypotension: Now hypertensive. Back on nicardipine drip with oral antihypertensive per NG tube. Hypoxemia: Mild, with some increased congestion today. Appears to be handling secretions acceptably, good cough. Will repeat x-ray in the morning.. AF: Chronic. No further runs of short VT. Troponins 07/10 slightly up at 1.5. EKG nonspecific. Echo yesterday unchanged comma fairly normal. Metabolic: Hypernatremic: Down slightly at 152 today. On D5W and water flushes. Urine output not excessive. No evidence for DI. Following. Anticoagulation: Was on Coumadin at the time of admission for valve replacement and AF. On hold. Anemia: Up after transfusion. Hematocrit stable at 31. Advanced directives. Discussed several days ago with family. They do not want cardiac compressions if needed. Plan: Continue care in the intensive care unit. Increase oral antihypertensives. Continue oxygen as needed. Follow chest x-ray in the a.m.. Follow cardiac rhythm. Continue SCDs for DVT prophylaxis. Unable to anticoagulate at this time. Continue IV fluids to D5W with potassium. Follow laboratory. Continue to look at inpatient rehab versus senior care facility placement verses LTAC. 35 min of critical care time spent directly with the patient. Discussed issues with the patient's family, hospitalist, nursing, and the ICU multi disciplinary team. Subjective: Somewhat more lethargic this a.m.. Does respond appropriately. Unable to move left side. Working with PT Objective: Vital Signs Temp Pulse Resp BP Pulse Ox 37.8 C 107 H 22 H 122/69 H 96 07/12/18 16:00 07/12/18 16:00 07/12/18 16:00 07/12/18 16:00 07/12/18 16:00 Laboratory Results 07/12/18 05:00 07/12/18 05:00 07/11/18 07/12/18 07/13/18 05:59 05:59 05:59 Intake Total 2237 4775 Output Total 2285 4100 850 Balance -48 675 -850 PT 16.2 SEC (12.0-15.0) H 07/12/18 05:00 INR 1.28 (0.83-1.16) H 07/12/18 05:00 CXR: Improved today. Small pleural effusions and bibasilar atelectasis. Lines and tubes in good position Physical Exam - Physical Exam General Appearance: thin, other (Lethargic, arouses) EENT: PERRL/EOMI, other (Nasal cannula in place at 2 L) Neck: normal inspection Respiratory: lungs clear, decreased breath sounds, No rhonchi Cardiac/Chest: tachycardia (Sinus) Abdomen: normal bowel sounds, non-tender, soft, other (Tolerating tube feeding) Male Genitalia: other (Tate catheter in place, good urine output but not excessive) Skin: warm/dry, pallor Extremities: No pedal edema Neuro/Psych: cognition abnormalities (More lethargic today, but appears intact.) , No no motor/sensory deficits (Not moving left side) ICD10 Worksheet Patient Problems: Problems Problem Status Onset Subdural hematoma Acute Fall at home Acute Atrial fibrillation Acute Other specified nutritional deficiencies Acute
[2018-07-12] MEDS: FAMOTIDINE 20 MG TAB TUBE SCH (22:00)
[2018-07-12] MEDS: BUMETANIDE 1 MG TAB TUBE SCH (22:00)
[2018-07-12] MEDS: ATORVASTATIN CALCIUM 20 MG TAB TUBE SCH (22:01)
[2018-07-12] MEDS: LATANOPROST 0.005% 2.5 ML OPHT DROPS EACHEYE SCH (22:01)
[2018-07-12] MEDS: levETIRAcetam 500 MG/5 ML UDCUP TUBE SCH (22:02)
[2018-07-13] MEDS: POTASSIUM Cl (KCl) 20 MEQ in D5W 1,000 ML IV SCH (04:45)
[2018-07-13 04:56] LABS: PLATELET COUNT 147 10^3/uL (150-400)
[2018-07-13] MEDS ORDERED: POTASSIUM Cl (KCl) 50 ML IV ONE (07:14)
[2018-07-13] MEDS: levETIRAcetam 500 MG/5 ML UDCUP TUBE SCH ×2 (09:15→21:55)
[2018-07-13] MEDS: FERROUS SULFATE 300 MG/5 ML UD CUP TUBE SCH (09:18)
[2018-07-13] MEDS: BUMETANIDE 1 MG TAB TUBE SCH ×2 (09:18→21:55)
[2018-07-13] MEDS: TAMSULOSIN HCL 0.4 MG CAP PO SCH (09:18)
[2018-07-13] MEDS: FAMOTIDINE 20 MG TAB TUBE SCH ×2 (09:18→21:55)
[2018-07-13] MEDS: MAGNESIUM HYDROXIDE 30 ML UDCUP TUBE PRN (09:18)
[2018-07-13] MEDS: amLODIPine BESYLATE 5 MG TAB TUBE SCH ×2 (09:18→21:55)
[2018-07-13] MEDS: SENNOSIDES 17.6 MG/10 ML UDL - IF LIQUID ORDERED TUBE SCH ×2 (09:20→21:55)
--- NOTE | 2018-07-13 10:48 | TRAUMAPN ---
Trauma Progress Note Assessment/Plan: 87 y/o M s/p mechanical fall on coumadin SDH: s/p evacuation 07/06 Left sided neuro deficits: improved per RN S: Sedated. Opens eyes and follows commands O: Sedated, but arousable Afebrile HENT: pupils equal and round Chest CTA bilaterally Abdomen: soft, nontender Musculoskeletal: Moves R extremities appropriately, moves left extremities in response to painful stimuli Objective: Vital Signs Temp Pulse Resp BP Pulse Ox 38.1 C 92 27 H 124/63 H 96 07/13/18 04:00 07/13/18 08:00 07/13/18 08:00 07/13/18 09:18 07/13/18 08:00 Laboratory Results 07/13/18 04:45 07/13/18 04:45 07/12/18 07/13/18 07/14/18 05:59 05:59 05:59 Intake Total 4775 2025 Output Total 4100 2225 Balance 675 -200 PT 16.2 SEC (12.0-15.0) H 07/12/18 05:00 INR 1.28 (0.83-1.16) H 07/12/18 05:00 - C-Spine Clearance Cervical Spine Cleared: No
--- NOTE | 2018-07-13 11:27 | HOSPPROG ---
Hospitalist Progress Note Assessment/Plan: 87 yo M w chf, bioprosthetic MV here w mechanical fall, SDH, Right sided epidural hematoma and intraparenchymal hemorrhage with subsequent left hemiparesis #SDH: s/p evacuation with persistent left sided hemiparesis -Hold Coumadin -no left sided improvements -PT/OT/Speech following -will need computer terminal operator rehab. Would benefit from an LTAC -Keppra per NS. Will need to determine how long he will be on this #Encephalopathy -Able to follow commands but cannot move left side -reportedly able to communicate with staff, but I have not experienced this. #hypernatremia: improving -Free Water in tube feeds -strict I's and O's, leave Tate in. If Na improved again tomorrow, would consider trial off Tate #AHRF, CHF with exacerbation -overall stable on Bumex bid -provide additional diuretics as needed -No additional diuretics needed today #Chronic Afib -Holding AC per above -He is not on a rate limiting agent chronically or in the hospital -would consider starting a rate limiting agent if BP allows -His rate is overall at target w/o a rate limiting agent #VT: resolved #HTN: -He is on scheduled Amlodipine BID. Since increasing to BID, BP is within goal of 100-140 systolic. -If BP tolerates or if increased, would start Metoprolol 12.5mg BID for Afib. His BP at this time is 103 systolic so holding for now #Dysphagia: -Tube feeds via dobhoff placed -will likely need a feeding tube, can evaluate daily SDH: s/p evacuation warfarin reversed C2 nuchal ligamnet tear: hard collar dispo: icu total critical care time is 34 minutes. Time spent with family (pts daughter and son) at bedside. Subjective: no overnight events. remains in afib. BP is better. no improvements to his left sided weakness Objective: Vital Signs Temp Pulse Resp BP Pulse Ox 38.1 C 92 27 H 124/63 H 96 07/13/18 04:00 07/13/18 08:00 07/13/18 08:00 07/13/18 09:18 07/13/18 08:00 Laboratory Results 07/13/18 04:45 07/13/18 04:45 07/12/18 07/13/18 07/14/18 05:59 05:59 05:59 Intake Total 4775 2024 Output Total 410 0 Balance 675 -200 PT 16.2 SEC (12.0-15.0) H 07/12/18 05:00 INR 1.28 (0.83-1.16) H 07/12/18 05:00 - Physical Exam Constitutional: chronically ill appearing Eyes: PERRL, EOMI Ears, Nose, Mouth, Throat: moist mucous membranes Cardiovascular: irregularly irregular Respiratory: no respiratory distress, no rales or rhonchi, reduced air movement Gastrointestinal: normoactive bowel sounds, soft, non-tender abdomen Skin: warm Musculoskeletal: generalized weakness Neurologic: No AAOx3 Psychiatric: encephalopathic, No interacting appropriately Lymph, Heme, Immunologic: No petechiae ICD10 Worksheet Patient Problems: Problems Problem Status Onset Atrial fibrillation Acute Fall at home Acute Other specified nutritional deficiencies Acute Subdural hematoma Acute
--- NOTE | 2018-07-13 11:29 | NEUSURGPN ---
Date of Surgery: 07/06/18 Post Op Day: 7 Assessment/Plan: Assessment: 87 yo male who takes Coumadin POD #7 sp emergent right crani for acute SDH after a fall Plan: -pt with slight improvement of left hemiplegia, retracts left upper and lower extremity with painful stimulation -maintain SBP 100-140 -Q4 hour neuro checks -patient's right sided strength improving, some improvement with clarity of speech at times per reports -Maintenance fluids 75cc/hr -continue with PT/OT/RESEARCH ANALYST as able -Discussed patient with Dr Shields -call NS with any changes or issues -CT brain 07/12 continued ICB/stable -Hangar to fit a better collar-[place] Subjective: No new events Objective: opens eyes spontaneously minimal speech but appropriate and oriented to place follows commands with right side PERRLA Moves right side spontaneously, follows commands with java sdet and wiggles toes Left upper and lower extremity movement seen with painful stimulation, no movement to command Neuro Check Frequency: per routine Urinary Catheter in Place: Yes Urinary Catheter Indication: Accurate I & O Required Catheter Insertion Date: 07/10/18 - Physician Discussed Patient with : Alyson Neurosurgery Physical Exam - Vitals, I&O, Labs I and O 07/12/18 07/13/18 07/14/18 05:59 05:59 05:59 Intake Total 4775 2025 Output Total 4100 2225 Balance 675 -200 Intake: IV Intake (ml) 1082 891 IV Infused (ml) 1198 954 POTASSIUM Cl (KCl) 20 meq 1038 846 In D5w 1,000 ml @ 80 mls /hr IV CONT DENISE Rx#: [id number] niCARdipine/NACL 200 ml @ 160 108 Titrate IV PRN PRN Rx#: [id number] Tube Feeding (ml) 1895 Tube Flush (ml) 600 180 Output: Urine (ml) 4100 2225 Catheter 4100 2225 Other: Intake Quantity No Sufficient Number of Stools Catheter 1 0 Vital Signs Temp Pulse Resp BP Pulse Ox 38.1 C 92 27 H 124/63 H 96 07/13/18 04:00 07/13/18 08:00 07/13/18 08:00 07/13/18 09:18 07/13/18 08:00 Laboratory Results 07/13/18 04:45 07/13/18 04:45 ICD10 Worksheet Patient Problems: Problems Problem Status Onset Atrial fibrillation Acute Fall at home Acute Other specified nutritional deficiencies Acute Subdural hematoma Acute
--- NOTE | 2018-07-13 12:29 | SOAPPROG ---
RAQUEL Progress Note Assessment/Plan: Assessment: 87-YEAR-OLD MALE WITH FALL YESTERDAY RESULTING IN LARGE RIGHT SUBDURAL HEMATOMA WITH A LEFT SHIFT AND LEFT JOSE ANTONIO PARESIS PATIENT IS RESPONSIVE AND ORIENTED AND ALERT WHEN AROUSED BUT STUPOROUS/LARGE ECCHYMOSIS OVER THE RIGHT TEMPORAL AREA/PERRLA CHEST CLEAR COR REGULAR RHYTHM ABDOMEN SOFT EXTREMITIES FULL RANGE OF MOTION FULL PULSES PATIENT IS ON COUMADIN WITH AN INR GREATER THAN 3 FOR A HEART VALVE Plan: NEUROSURGERY EVALUATION FOR PROBABLE INTERVENTION 07/06/18 13:00 07/13/18 12:28 SEEN WITH MY NURSE PRACTITIONER/PLEASE REFER TO HER NOTE SEDATED BUT RESPONSE TO VERBAL STIMULI AND ANSWERS QUESTIONS MOVING RIGHT SIDE APPROPRIATELY/LEFT SIDE STILL HEMIPARETIC WITH MINIMAL MOVEMENT MAY NEED PEG TUBE IF HE FEELS IS SWALLOW VALVE Objective: Vital Signs Temp Pulse Resp BP Pulse Ox 38.1 C 83 33 H 100/47 L 96 07/13/18 04:00 07/13/18 11:54 07/13/18 11:54 07/13/18 11:54 07/13/18 11:54 Laboratory Results 07/13/18 04:45 07/13/18 04:45 07/12/18 07/13/18 07/14/18 05:59 05:59 05:59 Intake Total 4775 2025 Output Total 4100 2225 Balance 675 -200 PT 16.2 SEC (12.0-15.0) H 07/12/18 05:00 INR 1.28 (0.83-1.16) H 07/12/18 05:00 ICD10 Worksheet Patient Problems: Problems Problem Status Onset Atrial fibrillation Acute Fall at home Acute Other specified nutritional deficiencies Acute Subdural hematoma Acute
--- NOTE | 2018-07-13 14:00 | PDINTPN ---
Pur[facility] Progress Note Assessment/Plan: Assessment: 87-year-old status post mechanical fall the day prior to admission, struck his head. History of mitral valve replacement, chronic atrial fibrillation and Coumadin anticoagulation. Awoke 07/06 with left-sided weakness. Brought to the emergency department and found to have a large right-sided subdural hematoma with herniation. He was taken to the operating room and craniotomy performed with evacuation of the subdural. He was returned to the intensive care unit on the ventilator, subsequently extubated without problems. He has had labile blood pressure, with hypotension postoperatively. Now hypertensive. S/P fall with SDH. S/p evacuation 07/06. Sub-dural drains now removed. Intraparenchymal Hemorrhages: Stable moderate-sized right putamen, with subsequent small corpus collosum area of hemorrhage. Neurologically he is doing well, is more alert and quite responsive. Perhaps confused at times. Dense Left-sided deficits persist. Right side appears fine. Requiring 2 person assist for transfers. Hypotension: Now hypertensive. Off nicardipine drip again with increased oral antihypertensives per NG tube. Hypoxemia: Mild, improving.. AF: Chronic. No further runs of short VT. Troponins 07/10 slightly up at 1.5. EKG nonspecific. Echo 07/11 unchanged: fairly normal. Metabolic: Hypernatremic: Improved comma 146 today. On D5W and water flushes. Urine output not excessive. No evidence for DI. Following. Anticoagulation: Was on Coumadin at the time of admission for valve replacement and AF. On hold. Anemia: Up after transfusion. Hematocrit slightly down at 28. Following Advanced directives. Discussed several days ago with family. They do not want cardiac compressions if needed. Plan: Continue care in the intensive care unit. Continue oral antihypertensives per NG. Continue oxygen as needed. Follow chest x-ray intermittently. Follow cardiac rhythm. Continue SCDs for DVT prophylaxis. Unable to anticoagulate at this time. Continue IV fluids to D5W with potassium. Follow laboratory. Continue to look at inpatient rehab versus residential facility placement verses LTAC. 35 min of critical care time spent directly with the patient. Discussed issues with the patient's family, hospitalist, nursing, and the ICU multi disciplinary team. Subjective: Indicates he is doing okay. Responsive slow. Objective: Vital Signs Temp Pulse Resp BP Pulse Ox 38.1 C 83 33 H 100/47 L 96 07/13/18 04:00 07/13/18 11:54 07/13/18 11:54 07/13/18 11:54 07/13/18 11:54 Laboratory Results 07/13/18 04:45 07/13/18 04:45 07/12/18 07/13/18 07/14/18 05:59 05:59 05:59 Intake Total 4775 2025 Output Total 4100 2225 Balance 675 -200 PT 16.2 SEC (12.0-15.0) H 07/12/18 05:00 INR 1.28 (0.83-1.16) H 07/12/18 05:00 Laboratory Tests 07/13/18 04:45 Calcium 8.2 L Magnesium 2.1 Physical Exam - Physical Exam General Appearance: thin, other (Slow in his responses. Appropriate. Sitting on the side of the bed working with PT), No WD/WN (Evolving head and facial trauma. Craniotomy incision clean and dry) EENT: PERRL/EOMI, No scleral icterus (R), No scleral icterus (L) Neck: normal inspection (No JVD), other (On room air currently. 2 L earlier.) Respiratory: lungs clear (Anteriorly), decreased breath sounds (At bases), rales (Left base greater than right), No rhonchi, No wheezing Cardiac/Chest: regular rate, rhythm Abdomen: normal bowel sounds, non-tender, soft, other (NG tube in place. On tube feeding) Male Genitalia: other (Tate catheter in place. Good urine output.) Skin: warm/dry, pallor Neuro/Psych: cognition abnormalities (Slow responses, but seems appropriate. Hard to understand.), No no motor/sensory deficits (Dense right-sided paresis continues. Sensation intact) ICD10 Worksheet Patient Problems: Problems Problem Status Onset Subdural hematoma Acute Fall at home Acute Atrial fibrillation Acute Other specified nutritional deficiencies Acute
[2018-07-13] MEDS: LATANOPROST 0.005% 2.5 ML OPHT DROPS EACHEYE SCH (21:55)
[2018-07-13] MEDS: ATORVASTATIN CALCIUM 20 MG TAB TUBE SCH (21:55)
[2018-07-14] MEDS: POTASSIUM Cl (KCl) 20 MEQ in D5W 1,000 ML IV SCH (00:35)
[2018-07-14] MEDS: ACETAMINOPHEN 650 MG/20.3 ML UDCUP TUBE PRN ×2 (07:30→13:11)
--- NOTE | 2018-07-14 08:00 | NEUSURGPN ---
Date of Surgery: 07/06/18 Post Op Day: 8 Assessment/Plan: Assessment: 87 yo male who takes Coumadin POD #8 sp emergent right crani for acute SDH after a fall Plan: -pt with continued small improvement of left hemiplegia, retracts left upper and lower extremity with painful stimulation -maintain SBP 100-140 -Q4 hour neuro checks -patient's right sided strength improving, some improvement with clarity of speech at times, pt oriented to place -continue with PT/OT/LIP READING TEACHER as able -Discussed patient with Dr Shields who will also see the patient this morning -call NS with any changes or issues -CT brain 07/12 continued ICB/stable -Hangar to fit a better collar-[place] Subjective: No new events Objective: opens eyes spontaneously minimal speech but appropriate and oriented to place follows commands with right side PERRLA Moves right side spontaneously, follows commands with machine shop instructor and wiggles toes Left upper and lower extremity movement seen with painful stimulation, no movement to command, left hip flexion with stim Neuro Check Frequency: per routine Urinary Catheter in Place: Yes Urinary Catheter Indication: Accurate I & O Required Catheter Insertion Date: 07/10/18 - Physician Discussed Patient with : Alyson Patient Seen by : Alyson Neurosurgery Physical Exam - Vitals, I&O, Labs I and O 07/13/18 07/14/18 07/15/18 05:59 05:59 05:59 Intake Total 2024 3868 Output Total 2224 1899 Balance -1968 Intake: IV Intake (ml) 891 IV Infused (ml) 954 1521 POTASSIUM Cl (KCl) 20 meq 846 1521 In D5w 1,000 ml @ 80 mls /hr IV CONT DENISE Rx#: [id number] niCARdipine/NACL 200 ml @ 108 Titrate IV PRN PRN Rx#: [id number] Tube Feeding (ml) 1948 Tube Flush (ml) 180 400 Output: Urine (ml) 2224 190 Catheter 2224 190 Other: Intake Quantity No Sufficient Number of Stools Catheter 0 1 Vital Signs Temp Pulse Resp BP Pulse Ox 38.7 C H 93 34 H 102/54 L 96 07/14/18 07:25 07/14/18 07:25 07/14/18 07:25 07/14/18 07:25 07/14/18 07:25 Laboratory Results 07/14/18 05:10 07/14/18 05:10 ICD10 Worksheet Patient Problems: Problems Problem Status Onset Atrial fibrillation Acute Fall at home Acute Other specified nutritional deficiencies Acute Subdural hematoma Acute
--- NOTE | 2018-07-14 09:09 | TRAUMAPN ---
Trauma Progress Note Assessment/Plan: 87 y/o M s/p mechanical fall on coumadin SDH: s/p evacuation 07/06. overnight events - Tm 38.7/Tc38 overnight, currently afebrile patient responds to commands - does not verbalize - RUE and RLE movement - no left side movement scalp incision clean heart irreg lungs coarse large upper airway secretions abd soft ext without edema WBC 8 CXR bibasilar consolidation poor overall prognosis prob underlying pneumonia - would start empiric abx given fever no other new trauma issues at this time Objective: Vital Signs Temp Pulse Resp BP Pulse Ox 38.7 C H 93 34 H 102/54 L 96 07/14/18 07:25 07/14/18 07:25 07/14/18 07:25 07/14/18 07:25 07/14/18 07:25 Laboratory Results 07/14/18 05:10 07/14/18 05:10 07/13/18 07/14/18 07/15/18 05:59 05:59 05:59 Intake Total 2024 3868 Output Total 5 1900 Balance -200 1969 PT 16.2 SEC (12.0-15.0) H 07/12/18 05:00 INR 1.28 (0.83-1.16) H 07/12/18 05:00 - C-Spine Clearance Cervical Spine Cleared: No
[2018-07-14] MEDS: SENNOSIDES 17.6 MG/10 ML UDL - IF LIQUID ORDERED TUBE SCH (09:25)
[2018-07-14] MEDS: amLODIPine BESYLATE 5 MG TAB TUBE SCH (09:25)
[2018-07-14] MEDS: MAGNESIUM HYDROXIDE 30 ML UDCUP TUBE PRN (09:25)
[2018-07-14] MEDS: FERROUS SULFATE 300 MG/5 ML UD CUP TUBE SCH (09:25)
[2018-07-14] MEDS: levETIRAcetam 500 MG/5 ML UDCUP TUBE SCH (09:25)
[2018-07-14] MEDS: TAMSULOSIN HCL 0.4 MG CAP PO SCH (09:25)
[2018-07-14] MEDS: FAMOTIDINE 20 MG TAB TUBE SCH (09:25)
[2018-07-14] MEDS: BUMETANIDE 1 MG TAB TUBE SCH (09:25)
--- NOTE | 2018-07-14 11:53 | PDINTPN ---
Gravel Machine Operator Progress Note Assessment/Plan: Assessment: 87-year-old status post mechanical fall the day prior to admission, struck his head. History of mitral valve replacement, chronic atrial fibrillation and Coumadin anticoagulation. Awoke 07/06 with left-sided weakness. Brought to the emergency department and found to have a large right-sided subdural hematoma with herniation. He was taken to the operating room and craniotomy performed with evacuation of the subdural. He was returned to the intensive care unit on the ventilator, subsequently extubated without problems. He has had labile blood pressure, with hypotension postoperatively, then hypertensive. S/P fall with SDH. S/p evacuation 07/06. Sub-dural drains now removed. Intraparenchymal Hemorrhages: Stable moderate-sized right putamen, with subsequent small corpus collosum area of hemorrhage. Neurologically he is doing fair. He remains lethargic but responsive. Speech difficult to understand. Perhaps confused at times. Dense Left-sided deficits persist. Right side appears fine. Requiring 2 person assist for transfers. Hypotension: Now hypertensive. Off nicardipine drip with increased oral antihypertensives per NG tube. BP lower this morning. Hypoxemia: Worse today associated with increasing secretions. Basilar infiltrates/atelectasis persists. Pneumonia possible. AF: Chronic. Has had further occasional short runs of VT. EKG nonspecific. Echo 07/11 unchanged: fairly normal. Metabolic: Hypernatremic: Resolved: 144 today. On D5W and water flushes. Urine output not excessive. No evidence for DI. Following. Anticoagulation: Was on Coumadin at the time of admission for valve replacement and AF. On hold. Anemia: Up after transfusion. Hematocrit 29. Following Advanced directives. Discussed several days ago with family. They do not want cardiac compressions if needed. Prognosis: Chance for meaningful recovery seems unlikely in this previously healthy and vibrant individual. Transitioning to comfort care and perhaps home with Hospice may be reasonable. I discussed this with the patient's daughter this morning who was receptive. For family conference later today. Plan: Continue care in the intensive care unit. Decrease oral antihypertensives per NG. Continue oxygen and bronchopulmonary therapies. Follow chest x-ray. Follow cardiac rhythm. Continue SCDs for DVT prophylaxis. Unable to anticoagulate at this time. Changed to half normal saline without potassium. Follow laboratory. Will discuss prognosis at the family meeting today and my recommendations regarding considering going more toward comfort care and possibly home with hospice. If family is not receptive to this then we will continue to look at inpatient rehab versus halfway facility placement verses LTAC. 40 min of critical care time spent directly initially with the patient, not including family meeting. Discussed issues with the patient's daughter and son , Trauma surgery, hospitalist, nursing, and the ICU multi disciplinary team. Subjective: Remains somnolent but arousable. Responsive although slow with speech that is difficult to understand. Increased respiratory secretions today with increased tachypnea. Objective: Vital Signs Temp Pulse Resp BP Pulse Ox 38.7 C H 93 34 H 104/51 L 96 07/14/18 07:25 07/14/18 07:25 07/14/18 07:25 07/14/18 09:25 07/14/18 07:25 Laboratory Results 07/14/18 05:10 07/14/18 05:10 07/13/18 07/14/18 07/15/18 05:59 05:59 05:59 Intake Total 2024 3868 Output Total 5 1900 Balance -200 1969 PT 16.2 SEC (12.0-15.0) H 07/12/18 05:00 INR 1.28 (0.83-1.16) H 07/12/18 05:00 Laboratory Tests 07/14/18 05:10 Calcium 8.3 L Magnesium 2.1 CXR: Bibasilar infiltrates, left greater than right. Lines and tubes in good position. Physical Exam - Physical Exam General Appearance: mild distress, thin, other (Lethargic, arouses, responds weakly), No WD/WN (Febrile to over 38 this morning) EENT: PERRL/EOMI, other (OxyMask now in place), No normal ENT inspection ( Evolving head trauma/craniotomy incision. No evidence of infection) Neck: normal inspection (No JVD) Respiratory: decreased breath sounds, rhonchi (Rhonchi present centrally, bilateral.), No lungs clear Cardiac/Chest: irregularly irregular Abdomen: normal bowel sounds, non-tender, soft, other (Tolerating tube feeding) Male Genitalia: other (Tate catheter in place. Adequate urine output) Skin: warm/dry, pallor Extremities: pedal edema (Trace) Neuro/Psych: cognition abnormalities (Slow responses, appear appropriate but limited), No no motor/sensory deficits (Left-sided deficits persist) ICD10 Worksheet Patient Problems: Problems Problem Status Onset Subdural hematoma Acute Fall at home Acute Atrial fibrillation Acute Other specified nutritional deficiencies Acute
[2018-07-14 11:54] VITALS: BP 92/57
[2018-07-14] MEDS ORDERED: AMPICILLIN/SULBACTAM 3 GM in NS 100 ML IV SCH (12:00)
--- NOTE | 2018-07-14 12:45 | PDCONSULT ---
Junior Java Developer Note: Family conference with patient's , daughter and son and son-in-law from 12 - 12:30. Nursing, social welfare clerk, mailroom coordinator, PT were all in attendance. Family updated on the patient's current condition and the probability of a poor neurologic outcome with dense paralysis of the left side, lethargy and confusion , inability to care for himself, need for long-term care, need for a gastric feeding tube, recurrent problems with issues like pneumonia, decubit, etc. My recommendation was to consider going more to a palliative care at this point with a hospice consult for a possible going home with hospice versus inpatient hospice at [facility]. The patient's family and patient's were understanding and will discuss the above issues. No decisions were made at this time.
[2018-07-14] MEDS ORDERED: ATROPINE 1% 5 ML OPHT.BTL SL PRN (16:28)
[2018-07-14] MEDS ORDERED: SCOPOLAMINE HYDROBROMIDE 1 MG/3 DAYS PATCH TD PRN (16:28)
[2018-07-14] MEDS ORDERED: HYOSCYAMINE SULFATE 0.125 MG TAB SL PRN (16:28)
--- NOTE | 2018-07-14 17:10 | HOSPPROG ---
Hospitalist Progress Note Assessment/Plan: * IPH, SAH, SDH s/p evacuation with persistent left hemiparesis * Dysphagia - NGT tube feeds * Encephalopathy -severe * Afib -off warfarin due to head bleed * Dural tear - neck brace * Biomechanical MV replacement * HTN * New fever Family meeting this evening. Dr. Demetri Green presented hospice as an option earlier today. After some thought, it appears the family is ready to move forward with full comfort measures. They have chosen to de-escalate code status to DNR. He qualifies for GIP hospice based on his degree of uncontrolled symptoms, currently agitated, resp distress, restrained. Change to full comfort based care now, if he plateaus may need to look at hospice discharge but anticipate end of life within days. Subjective: not responsive Objective: Vital Signs Temp Pulse Resp BP Pulse Ox 38.2 C 88 24 H 92/57 L 96 07/14/18 13:12 07/14/18 11:53 07/14/18 11:53 07/14/18 11:53 07/14/18 11:53 Microbiology 07/14/18 11:35 - Final Sputum, Induced/Suctioned Laboratory Results 07/14/18 05:10 07/14/18 05:10 07/13/18 07/14/18 07/15/18 05:59 05:59 05:59 Intake Total 2024 3868 Output Total 5 1900 Balance -200 1969 PT 16.2 SEC (12.0-15.0) H 07/12/18 05:00 INR 1.28 (0.83-1.16) H 07/12/18 05:00 d/w Dr. Green regarding plan of care Full chart reviewed including all imaging - last head CT no change in blood - Physical Exam Constitutional: appears nourished, uncomfortable, No no apparent distress, No cachectic Cardiovascular: regular rate and rhythym, no murmur, rub, or gallop Respiratory: no respiratory distress, no rales or rhonchi, clear to auscultation Gastrointestinal: normoactive bowel sounds, soft, non-tender abdomen, no palpable masses Skin: no rashes or abrasions, no fluctuance, no induration Musculoskeletal: No full muscle strength Neurologic: weakness (hemiparesis), No AAOx3 Psychiatric: encephalopathic, agitated, poor insight, poor judgement, poor memory, No interacting appropriately ICD10 Worksheet Patient Problems: Problems Problem Status Onset Atrial fibrillation Acute Fall at home Acute Other specified nutritional deficiencies Acute Subdural hematoma Acute
--- NOTE | 2018-07-14 17:23 | ASMTCMCOM ---
CM Note CM Note Notes: Family meeting held today with Dr. Green, Aren Murillo, , Judie, patient's nurse, Casie, Cracking Machine Operator, Paperhanger Contractor, Essence, patient's , [place], patient's daughter, Maxime, patient's son and Riley, patient's son in law. Dr. Green reviewed the patient's current medical status and answered questions regarding prognosis. Dr. Green discussed the idea of hospice for patient as a way to honor the patient's wishes and move to comfort measures. The family decided to have an informational session with [facility] as they are close to their home and have a care center in the event paient qualifies for it. A referal was made and [facility] came to answer questions and go over their services. Dr. Perez joined the meeting and stated we can move the patient to comfort measures immediately while he is still here in the hospital. The patient was changed to DNR and the family elected to move to comfort measures immediately. Aren had contacted the families engineering technologist who was present during the meeting and will support the family in expressing their feelings to the patient. We will monitor how the patient does during the night and into the morning. [facility] case manager tomorrow to get an update. If patient has a plateau and we can transfer safely, patient may move to the inpatient care center. If it is unsafe to move the patient, we will keep him here on comfort measures until he is. CM will follow. Date Signed: 07/14/2018 05:22 PM Electronically Signed By:Casie Haq LCSW
[2018-07-14] MEDS: LATANOPROST 0.005% 2.5 ML OPHT DROPS EACHEYE SCH (20:26)
--- NOTE | 2018-07-15 08:36 | SOAPPROG ---
SOAP Progress Note Assessment/Plan: Assessment: 87 yo M sp right craniotomy for large SDH/ICH Plan: patient transitioned to hospice care will sign off please call with questions 07/15/18 08:35 Subjective: chart reviewed Objective: Vital Signs Temp Pulse Resp BP Pulse Ox 38.2 C 88 24 H 92/57 L 96 07/14/18 13:12 07/14/18 11:53 07/14/18 11:53 07/14/18 11:53 07/14/18 11:53 Microbiology 07/14/18 11:35 - Final Sputum, Induced/Suctioned Laboratory Results 07/14/18 05:10 07/14/18 05:10 07/14/18 07/15/18 07/16/18 05:59 05:59 05:59 Intake Total 3869 Output Total 1900 350 Balance 1969 -350 PT 16.2 SEC (12.0-15.0) H 07/12/18 05:00 INR 1.28 (0.83-1.16) H 07/12/18 05:00 somnolent opens eyes to aggressive tactile stimuli Pupils: 3 mm ou plegic left arm/leg limited movement right arm/leg C/D/I ICD10 Worksheet Patient Problems: Problems Problem Status Onset Atrial fibrillation Acute Fall at home Acute Other specified nutritional deficiencies Acute Subdural hematoma Acute
--- NOTE | 2018-07-15 08:48 | TRAUMAPN ---
Trauma Progress Note - Problem/Surgery Performed (1) Fall at home Assessment/Plan: mechanism of injury Qualifiers: Encounter type: initial encounter Qualified Code(s): W19.XXXA - Unspecified fall, initial encounter; Y92.009 - Unspecified place in unspecified non-institutional (private) residence as the place of occurrence of the external cause; Y92.009 - Unspecified place in unspecified non-institutional ( private) residence as the place of occurrence of the external cause (2) Subdural hematoma Assessment/Plan: s/p Crani/evacuation SDH Dr. Shields, with severe neuro deficit pre/post op patient's family has transitioned to Hospice/comfort care which I think is appropriate neurosurgery has signed off the case Assessment/Plan: s/p fall with SDH/crani for evacuation clinical neurologic deficit is considerable and return to independent function highly unlikely/family's decision appropriate continue comfort measures only/consider home Hospice Subjective: obtunded, not responsive to verbal stimulus some spontaneous movement RUE Objective: Vital Signs Temp Pulse Resp BP Pulse Ox 38.2 C 88 24 H 92/57 L 96 07/14/18 13:12 07/14/18 11:53 07/14/18 11:53 07/14/18 11:53 07/14/18 11:53 Microbiology 07/14/18 11:35 - Final Sputum, Induced/Suctioned Laboratory Results 07/14/18 05:10 07/14/18 05:10 07/14/18 07/15/18 07/16/18 05:59 05:59 05:59 Intake Total 3869 0 Output Total 1900 350 Balance 1969 -350 PT 16.2 SEC (12.0-15.0) H 07/12/18 05:00 INR 1.28 (0.83-1.16) H 07/12/18 05:00 - C-Spine Clearance Cervical Spine Cleared: No Physical Exam - Physical Exam General Appearance: obtunded EENT: other (resolving right ree-orbital ecchymosis) Neck: other (C collar has been removed) Respiratory: decreased breath sounds, rhonchi Cardiac/Chest: regular rate, rhythm Abdomen: soft Male Genitalia: deferred Rectal: deferred Skin: pallor Neuro/Psych: aphasia, motor weakness, cognition abnormalities, speech abnormalities
[2018-07-15] MEDS: GLYCOPYRROLATE 0.2 MG/1 ML VIAL IVP/IM PRN ×2 (08:50→11:54)
[2018-07-15] MEDS ORDERED: amLODIPine BESYLATE 5 MG TAB TUBE SCH (09:00)
[2018-07-15] MEDS: morphINE 10 MG/0.5 ML UDSYR PO PRN ×2 (10:12→11:21)
[2018-07-15] MEDS: LORazepam 2 MG/ML INJ IVP PRN ×3 (11:21→22:23)
--- NOTE | 2018-07-15 14:21 | ASMTCMCOM ---
CM Note CM Note Notes: Spoke w/pt's family, they would like to go home w/hospice. CM notified [facility], will need at least 4 hours for delivery of medical equipment. RONAK Go from [facility] here to meet with pt and family, feels pt is more appropriate for carecenter. They can take pt on Tuesday, family agrees with change in plan, CM notified RN and MD. DC Plan: [facility] Date Signed: 07/15/2018 11:22 AM Electronically Signed By:Noa Garvey RN
--- NOTE | 2018-07-15 15:27 | HOSPPROG ---
Hospitalist Progress Note Assessment/Plan: * IPH, SAH, SDH s/p evacuation with persistent left hemiparesis * Dysphagia - severe aspiration risk * Encephalopathy -severe * Afib -off warfarin due to head bleed * Dural tear - neck brace * Biomechanical MV replacement * HTN * New fever - probable aspiration pneumonia Comfort measures - transfer to hospice in am continue morphine as needed for comfort Subjective: No meaningful interaction, keeps grabbing his head Objective: Vital Signs Temp Pulse Resp BP Pulse Ox 38.2 C 88 24 H 92/57 L 96 07/14/18 13:12 07/14/18 11:53 07/14/18 11:53 07/14/18 11:53 07/14/18 11:53 Microbiology 07/14/18 11:35 - Final Sputum, Induced/Suctioned Laboratory Results 07/14/18 05:10 07/14/18 05:10 07/14/18 07/15/18 07/16/18 05:59 05:59 05:59 Intake Total 3869 0 Output Total 1900 350 Balance 1969 -350 PT 16.2 SEC (12.0-15.0) H 07/12/18 05:00 INR 1.28 (0.83-1.16) H 07/12/18 05:00 - Physical Exam Constitutional: uncomfortable Cardiovascular: regular rate and rhythym, no murmur, rub, or gallop Respiratory: no respiratory distress, no rales or rhonchi, clear to auscultation Skin: no rashes or abrasions, no fluctuance, no induration Neurologic: weakness (complete left hemiparesis), No AAOx3 Psychiatric: encephalopathic, agitated, poor insight, poor judgement, poor memory, No interacting appropriately ICD10 Worksheet Patient Problems: Problems Problem Status Onset Atrial fibrillation Acute Fall at home Acute Other specified nutritional deficiencies Acute Subdural hematoma Acute
[2018-07-15] MEDS: LATANOPROST 0.005% 2.5 ML OPHT DROPS EACHEYE SCH (20:31)
--- NOTE | 2018-07-16 09:20 | GDS ---
Summary Time of : 07/16/2018, at 2:38 a.m. FINAL DIAGNOSES: 1. Subdural hematoma, status post evacuation. 2. Intraparenchymal hemorrhage and subarachnoid hemorrhage. 3. Persistent dense left hemiparesis. 4. Dysphagia with severe aspiration risk. 5. Severe encephalopathy. 6. Atrial fibrillation, on chronic anticoagulation. 7. Dural tear. 8. Biomechanical mitral valve replacement. 9. Hypertension. 10. Probable aspiration pneumonia. HISTORY: Manny Dominguez is an 87-year-old male, quite active until the time of his . He was i n his garden picking tomatoes when he fell and hit his head. He was on chronic anticoagulation for a trial fibrillation. He sustained extensive intracranial hemorrhage, including a subdural, subarachno id intraparenchymal hemorrhage. He went with Neurosurgery for evacuation of the subdural. He failed to improve, and had persistent dense left hemiparesis. He had severe dysphagia and had an NG tube f or feeding, and was probably going to have to pursue PEG tube. He had severe encephalopathy. Overal l his prognosis for recovery was poor, and the family felt that further aggressive care was not consi stent with his wishes. They transitioned him to comfort measures. We were arranging home hospice; katie vaughn, he overnight peacefully, with family at bedside. /[id number]/MODL
--- NOTE | 2018-07-16 14:57 | ASMTCMCOM ---
CM Note CM Note Notes: CM received call from [facility], informed Neris Bryant early this morning. Date Signed: 07/16/2018 02:56 PM Electronically Signed By:Homa Johnson
--- NOTE | 2018-07-16 14:57 | ASDISCHSUM ---
Discharge Information Plan Status: Medically Cleared to Leave: Discharge Date:07/16/2018 04:28 AM CM D/C Disposition: ADT D/C Disposition: Projected Discharge Date:07/15/2018 11:00 AM Transportation at D/C: Discharge Delay Reason: Follow-Up Date:07/15/2018 11:00 AM Discharge Slot: Final Diagnosis: Placement Information Referral Type:*Hospice Referral ID:[id number] Provider Name: Address 1: Phone Number: Address 2: Fax Number: City: Selection Factors: State: Patient Contact Information Contact Name:AUDELIA Relationship: Address:[address] Work Phone: City:[place] Alternate Phone: [facility]/Zip Code:[place] [address] Email: Financial Information Financial Class:Medicare Advantage Plans Primary Plan Desc:[employer] ADV IP Primary Plan Number:[id number] Secondary Plan Desc: Secondary Plan Number: Assessment Information [facility] Initial CM Assessment Living Arrangements What is your living Answers: With Spouse arrangement? Who do you live with? Type Of Residence What kind of residence do Answers: House you live in? Discharge Plan Comments Coordination Status Comments Notes: Patient is a 87yo male who is on Coumadin for a heart valve replacement. Patient was picking tomatoes on 07-05-18 when he fell and hit his head. He woke up on the unable to move his left arm and left leg. Patient was also experiencing dizziness and nausea, headache. In the ER, patient deteriorated and was taken emergently to the OR where a craniotomy was performed and a large right subdural hematoma was evacuated. PT ordered. D/C plan TBD. CM will follow Date Signed: 07/07/2018 09:33 AM Electronically Signed By:Casie Haq LCSW [facility] CM Progress Note CM Note CM Note Notes: Patient following commands, L sided weakness, family does not want CPR, feeding tube started. Will talk to family regarding Rehab Tuesday. Date Signed: 07/10/2018 05:48 PM Electronically Signed By:Heather Ramos LCSW [facility] CM Progress Note CM Note CM Note Notes: Spoke to MD's regarding LTAC vs In-pt Rehab. Not LTAC appropriate. Therapies all recommending Acute Rehab. Order in for Acute to eval. Patient has [facility], [facility] will have to authorize. Patient doing so much better. Met with daughter, Makenna to explain rehab options. Date Signed: 07/11/2018 03:55 PM Electronically Signed By:Heather Ramos LCSW [facility] CM Progress Note CM Note CM Note Notes: Family meeting held today with Dr. Green, Aren Murillo, Judie Akins, patient's nurse, Casie, Boot Trimmer, Payroll Administrative Assistant, Essence, patient's , [place], patient's daughter, Maxime, patient's son and Riley, patient's son in law. Dr. Green reviewed the patient's current medical status and answered questions regarding prognosis. Dr. Green discussed the idea of hospice for patient as a way to honor the patient's wishes and move to comfort measures. The family decided to have an informational session with [facility] as they are close to their home and have a care center in the event paient qualifies for it. A referal was made and Gene came to answer questions and go over their services. Dr. Perez joined the meeting and stated we can move the patient to comfort measures immediately while he is still here in the hospital. The patient was changed to DNR and the family elected to move to comfort measures immediately. Aren had contacted the families hat block bench hand who was present during the meeting and will support the family in expressing their feelings to the patient. We will monitor how the patient does during the night and into the morning. [facility], Sharlene will contact the lining caser tomorrow to get an update. If patient has a plateau and we can transfer safely, patient may move to the inpatient care center. If it is unsafe to move the patient, we will keep him here on comfort measures until he is. CM will follow. Date Signed: 07/14/2018 05:22 PM Electronically Signed By:Casie Haq LCSW [facility] Progress Note CM Note CM Note Notes: Spoke w/pt's family, they would like to go home w/hospice. CM notified [facility], will need at least 4 hours for delivery of medical equipment. RONAK Go from [facility] here to meet with pt and family, feels pt is more appropriate for carecenter. They can take pt on Tuesday, family agrees with change in plan, CM notified RN and MD. DC Plan: [facility] Date Signed: 07/15/2018 11:22 AM Electronically Signed By:Noa Garvey RN [facility] CM Progress Note CM Note CM Note Notes: CM received call from [facility], informed Neris Bryant early this morning. Date Signed: 07/16/2018 02:56 PM Electronically Signed By:Homa Johnson Intervention Information
== END 2018-07-16 04:28 | disposition expired | DRG 25 ==
LOC: EDUNIT# → F2N 14:16 → F3E 07-14 18:12
PROVIDERS: ADMIT Surgery; ATTEND Surgery
DX: S06.5X0A Traumatic subdural hemorrhage without loss of consciousness, initial encounter (principal); G93.49 Other encephalopathy; J69.0 Pneumonitis due to inhalation of food and vomit; G81.94 Hemiplegia, unspecified affecting left nondominant side; G96.11 Dural tear; S06.6X0A Traumatic subarachnoid hemorrhage without loss of consciousness, initial encounter; W18.30XA Fall on same level, unspecified, initial encounter; Y93.H2 Activity, gardening and landscaping; R13.10 Dysphagia, unspecified; I48.91 Unspecified atrial fibrillation; I10 Essential (primary) hypertension; R40.2411 Glasgow coma scale score 13-15, in the field [EMT or ambulance]; N40.0 Benign prostatic hyperplasia without lower urinary tract symptoms; Z79.01 Long term (current) use of anticoagulants; Z95.3 Presence of xenogenic heart valve; Z51.5 Encounter for palliative care; Z23 Encounter for immunization
CPT/HCPCS: 82435-PO; 82565-PO; 82947-PO; 83520-90; 84132-PO; 84295-PO; 84520-PO; 85014-PO; 92507-GN; 92523-GN; 92526-GN; 92610-GN; 96365; 97112-GP; 97162-GP; 97165-GO; 97530-GO; 97530-GP; 97535-GO; C1713; C1729; C9132; G0008; G0390; G8978-GP-CM; G8979-GP-CK; J0171; J0295; J0690; J1100; J1265; J1580; J1940; J1953; J2001; J2060; J2270; J2370; J2405; J2704; J3010; J3430; J3480; P9016; P9041; Q9967